=== PATIENT | female | born 1945 | race Caucasian/White ===

== ENCOUNTER → 2016-06-15 | Outpatient (REF) | payer MEDICARE, OTHER ==
[~2016-06-15] MED LIST: BACITAB3 PO; DICY1CAP8 PO; FISHCAP PO; LATA5OPD OU; MESA50SU PR; NAPRPOW4 PO; PRED10PA PO; PRED20TA PO; REST0.05 OU; SULF500T2 PO
[2016-06-17 06:53] LABS: PERCENT SATURATION 40.5 % (13.2-37.4)
== END ==
LOC: M LAB REF 13:07
PROVIDERS: ATTEND Internal Medicine
DX: D50.9 Iron deficiency anemia, unspecified (principal)

== ENCOUNTER → 2016-07-26 | Outpatient (CLI) | payer MEDICARE, OTHER ==
[~2016-07-26] VITALS: Ht 172.7 cm; Wt 66.2 kg
[~2016-07-26] MED LIST changes: +LIAL1.2T PO; +NS 1,000 ML IV ONE; +PROPOFOL 200 MG/20 ML VIAL As Ordered ONE; +TYLE500T78 PO
--- NOTE | 2016-07-26 11:33 | ROOR ---
Patient Name: Elza Donohue Procedure Date: 07/26/2016 10:58 AM Date of : 1945 Age: 71 Room: [facility] Gender: Female Note Status: Finalized Procedure: Colonoscopy Indications: High risk colon cancer surveillance: Ulcerative proctosigmoiditis Providers: Gulshan CARDOSO MD Referring MD: PATTI FRANKLIN JR, MD Requesting Provider: Medicines: Monitored Anesthesia Care Complications: No immediate complications. Procedure: Pre-Anesthesia Assessment: - The heart rate, respiratory rate, oxygen saturations, blood pressure, adequacy of pulmonary ventilation, and response to care were monitored throughout the procedure. The Colonoscope was introduced through the anus and advanced to 4 cm into the ileum. The colonoscopy was performed without difficulty. The patient tolerated the procedure well. The quality of the bowel preparation was good. Findings: The perianal examination was normal. Inflammation characterized by congestion (edema), erythema, loss of vascularity, pseudopolyps and scarring was found in a continuous and circumferential pattern from the rectum to the splenic flexure. This was moderate in severity. Biopsies were taken with a cold forceps for histology. The exam of the rest of the colon and terminal ileum was visually normal. Impression: - Left-sided ulcerative colitis. Inflammation was found from the rectum to the splenic flexure. This was moderate in severity. Biopsied. - The examination of the rest of the colon was otherwise normal. - The perianal exam was normal (skin tags) - The terminal ileum was normal. Recommendation: - Continue present medications. - Return to my office in 1 month. - You are on Lialda and Canasa.--Your symptoms are only at best marginally well controlled. I would recommend advancing your regimen to probably a biologic medication (Humira or Remicade)....to be discussed on follow up. Gulshan Cardoso MD Gulshan CARDOSO MD 07/26/2016 11:33:10 AM This report has been signed electronically. Number of Addenda: 0 Note Initiated On: 07/26/2016 10:58 AM Estimated Blood Loss: Estimated blood loss: none.
[2016-07-26 11:45] VITALS: BP 141/87
== END | disposition home or self-care (01) ==
LOC: M OPP 09:28
PROVIDERS: ATTEND Internal Medicine Gastroenterology
DX: K51.30 Ulcerative (chronic) rectosigmoiditis without complications (principal); K51.50 Left sided colitis without complications; K64.4 Residual hemorrhoidal skin tags; E78.5 Hyperlipidemia, unspecified; K57.92 Diverticulitis of intestine, part unspecified, without perforation or abscess without bleeding; M19.90 Unspecified osteoarthritis, unspecified site; G43.909 Migraine, unspecified, not intractable, without status migrainosus; J84.10 Pulmonary fibrosis, unspecified; Z87.891 Personal history of nicotine dependence; Z86.69 Personal history of other diseases of the nervous system and sense organs; Z79.899 Other long term (current) drug therapy; Z80.41 Family history of malignant neoplasm of ovary; Z80.7 Family history of other malignant neoplasms of lymphoid, hematopoietic and related tissues

== ENCOUNTER → 2016-11-23 | Outpatient (CLI) | payer MEDICARE, OTHER ==
[~2016-11-23] MED LIST changes: +BACITAB PO; -BACITAB3 PO; -NS 1,000 ML IV ONE; -PROPOFOL 200 MG/20 ML VIAL As Ordered ONE
[2016-11-23 11:36] LABS: BASO # 0.1 10^3/uL (0.0-0.2); BASO % 0.8 % (0.0-1.0); EOS # 0.2 10^3/uL (0.0-0.50); EOS % 3.3 % (0.0-3.0); IMMATURE GRANULOCYTE % 0.2 % (0-0); LYMPH # 0.9 10^3/uL (1.5-4.5); LYMPH % 15.3 % (24.0-44.0); MEAN CORPUSCULAR HEMOGLOBIN 30.6 pg (27.0-33.0); MEAN CORPUSCULAR HGB CONC 33.3 g/dl (32.0-36.5); MEAN CORPUSCULAR VOLUME 92.1 fl (80.0-96.0); MONO # 0.5 10^3/uL (0.0-0.8); MONO % 8.2 % (0.0-5.0); NEUTROPHILS # 4.3 10^3/uL (1.8-7.7); NEUTROPHILS % 72.2 % (36.0-66.0); PLATELET COUNT, AUTOMATED 242 10^3/uL (150-450); RED CELL DISTRIBUTION WIDTH 12.8 % (11.5-14.5)
[2016-11-23 12:11] LABS: ALBUMIN 3.7 GM/DL (3.2-5.2); ALBUMIN/GLOBULIN RATIO 1.16 (1.00-1.93); ALKALINE PHOSPHATASE 88 U/L (45-117); ALT/SGPT 23 U/L (12-78); ANION GAP 6 MEQ/L (8-16); AST/SGOT 20 U/L (15-37); BILIRUBIN,TOTAL 0.5 MG/DL (0.2-1.0); BLOOD UREA NITROGEN 18 MG/DL (7-18); CALCIUM LEVEL 8.6 MG/DL (8.8-10.2); CARBON DIOXIDE LEVEL 29 MEQ/L (21-32); CHLORIDE LEVEL 106 MEQ/L (98-107); CREATININE FOR GFR 0.62 MG/DL (0.55-1.02); FREE T4 1.11 NG/DL (0.76-1.46); GLOMERULAR FILTRATION RATE > 60.0 (>45); GLUCOSE, FASTING 84 MG/DL (80-110); POTASSIUM SERUM 4.2 MEQ/L (3.5-5.1); SODIUM LEVEL 141 MEQ/L (136-145); TOTAL PROTEIN 6.9 GM/DL (6.4-8.2)
== END ==
LOC: M LAB 09:56
PROVIDERS: ATTEND Internal Medicine Gastroenterology
DX: K51.319 Ulcerative (chronic) rectosigmoiditis with unspecified complications (principal); K51.211 Ulcerative (chronic) proctitis with rectal bleeding; Z79.899 Other long term (current) drug therapy

== ENCOUNTER → 2017-01-21 | Outpatient (CLI) | payer MEDICARE, OTHER | LOC: M LAB 12:02 | PROVIDERS: ATTEND Internal Medicine Gastroenterology | DX: K51.319 Ulcerative (chronic) rectosigmoiditis with unspecified complications (principal) ==

== ENCOUNTER → 2017-07-04 | Outpatient (CLI) | payer MEDICARE, OTHER ==
[2017-07-04 17:46] LABS: ALBUMIN 3.1 GM/DL (3.2-5.2); ALBUMIN/GLOBULIN RATIO 0.82 (1.00-1.93); ALKALINE PHOSPHATASE 68 U/L (45-117); ALT/SGPT 22 U/L (12-78); ANION GAP 4 MEQ/L (8-16); AST/SGOT 17 U/L (7-37); BILIRUBIN,TOTAL 0.3 MG/DL (0.2-1.0); BLOOD UREA NITROGEN 14 MG/DL (7-18); C REACTIVE PROTEIN QUANTITATIV 1.32 MG/DL (0.00-0.30); CALCIUM LEVEL 8.5 MG/DL (8.8-10.2); CARBON DIOXIDE LEVEL 28 MEQ/L (21-32); CHLORIDE LEVEL 111 MEQ/L (98-107); CREATININE FOR GFR 0.63 MG/DL (0.55-1.30); GLOMERULAR FILTRATION RATE > 60.0 (>39); GLUCOSE, FASTING 90 MG/DL (70-100); POTASSIUM SERUM 4.3 MEQ/L (3.5-5.1); SODIUM LEVEL 143 MEQ/L (136-145); TOTAL PROTEIN 6.9 GM/DL (6.4-8.2)
[2017-07-04 18:06] LABS: BASO # 0.1 10^3/uL (0.0-0.2); BASO % 0.9 % (0.0-1.0); EOS % 0.3 % (0.0-3.0); HEMOGLOBIN 8.8 g/dl (12.0-15.5); IMMATURE GRANULOCYTE % 0.3 % (0-3.0); LYMPH # 1.4 10^3/uL (1.5-4.5); LYMPH % 19.7 % (24.0-44.0); MEAN CORPUSCULAR HEMOGLOBIN 22.4 pg (27.0-33.0); MEAN CORPUSCULAR HGB CONC 29.3 g/dl (32.0-36.5); MEAN CORPUSCULAR VOLUME 76.3 fl (80.0-96.0); MONO # 0.6 10^3/uL (0.0-0.8); MONO % 9.1 % (0.0-5.0); NEUTROPHILS # 4.9 10^3/uL (1.8-7.7); NEUTROPHILS % 69.7 % (36.0-66.0); PLATELET COUNT, AUTOMATED 361 10^3/uL (150-450); RED BLOOD COUNT 3.93 10^6/uL (4.00-5.40); RED CELL DISTRIBUTION WIDTH 16.6 % (11.5-14.5); WHITE BLOOD COUNT 7.1 10^3/uL (4.0-10.0)
== END ==
LOC: M LAB 16:43
DX: K51.211 Ulcerative (chronic) proctitis with rectal bleeding (principal)
CPT/HCPCS: 80053

== ENCOUNTER 2017-07-30 09:14 | Outpatient (CLI) | payer MEDICARE, OTHER ==
[2017-07-30] MEDS: VEDOLIZUMAB 300 MG in NS 250 ML IV (10:17)
== END 2017-07-30 11:45 | disposition home or self-care (01) ==
LOC: M INFU 09:14
DX: K51.90 Ulcerative colitis, unspecified, without complications (principal); E78.00 Pure hypercholesterolemia, unspecified; J98.4 Other disorders of lung; M12.9 Arthropathy, unspecified; Z79.899 Other long term (current) drug therapy; Z90.710 Acquired absence of both cervix and uterus; F17.210 Nicotine dependence, cigarettes, uncomplicated
CPT/HCPCS: J3380

== ENCOUNTER → 2017-08-21 | Outpatient (CLI) | payer MEDICARE, OTHER ==
[2017-08-21 10:40] LABS: BASO # 0.1 10^3/uL (0.0-0.2); BASO % 0.7 % (0.0-1.0); EOS % 0.6 % (0.0-3.0); HEMATOCRIT 40.2 % (36.0-47.0); HEMOGLOBIN 12.8 g/dl (12.0-15.5); IMMATURE GRANULOCYTE % 0.3 % (0-3.0); LYMPH # 1.3 10^3/uL (1.5-4.5); LYMPH % 18.8 % (24.0-44.0); MEAN CORPUSCULAR HEMOGLOBIN 27.5 pg (27.0-33.0); MEAN CORPUSCULAR HGB CONC 31.8 g/dl (32.0-36.5); MEAN CORPUSCULAR VOLUME 86.5 fl (80.0-96.0); MONO # 0.4 10^3/uL (0.0-0.8); NEUTROPHILS # 5.2 10^3/uL (1.8-7.7); NEUTROPHILS % 73.6 % (36.0-66.0); PLATELET COUNT, AUTOMATED 304 10^3/uL (150-450); RED BLOOD COUNT 4.65 10^6/uL (4.00-5.40); RED CELL DISTRIBUTION WIDTH 23.3 % (11.5-14.5); WHITE BLOOD COUNT 7.1 10^3/uL (4.0-10.0)
[2017-08-21 10:55] LABS: IRON (FE) 113 UG/DL (50-170); PERCENT SATURATION 34.7 % (13.2-45.0); TOTAL IRON BINDING CAPACITY 326 UG/DL (250-450)
== END ==
LOC: M LAB 10:00
DX: K51.319 Ulcerative (chronic) rectosigmoiditis with unspecified complications (principal)
CPT/HCPCS: 83550

== ENCOUNTER 2017-09-10 13:14 | Outpatient (CLI) | payer MEDICARE, OTHER ==
[2017-09-10] MEDS: VEDOLIZUMAB 300 MG in NS 250 ML IV (13:58)
== END 2017-09-10 14:45 | disposition home or self-care (01) ==
LOC: M INFU 13:14
DX: K51.90 Ulcerative colitis, unspecified, without complications (principal); Z79.899 Other long term (current) drug therapy
CPT/HCPCS: J3380

== ENCOUNTER → 2017-09-25 | Outpatient (CLI) | payer MEDICARE, OTHER ==
[2017-09-25 12:11] LABS: BASO % 0.6 % (0.0-1.0); EOS % 0.4 % (0.0-3.0); HEMATOCRIT 42.8 % (36.0-47.0); HEMOGLOBIN 13.6 g/dl (12.0-15.5); IMMATURE GRANULOCYTE % 0.6 % (0-3.0); LYMPH % 14.3 % (24.0-44.0); MEAN CORPUSCULAR HEMOGLOBIN 27.8 pg (27.0-33.0); MEAN CORPUSCULAR HGB CONC 31.8 g/dl (32.0-36.5); MEAN CORPUSCULAR VOLUME 87.5 fl (80.0-96.0); MONO # 0.3 10^3/uL (0.0-0.8); MONO % 4.2 % (0.0-5.0); NEUTROPHILS # 5.5 10^3/uL (1.8-7.7); NEUTROPHILS % 79.9 % (36.0-66.0); PLATELET COUNT, AUTOMATED 280 10^3/uL (150-450); RED BLOOD COUNT 4.89 10^6/uL (4.00-5.40); RED CELL DISTRIBUTION WIDTH 16.5 % (11.5-14.5); WHITE BLOOD COUNT 6.9 10^3/uL (4.0-10.0)
[2017-09-25 12:57] LABS: ALBUMIN 3.4 GM/DL (3.2-5.2); ALBUMIN/GLOBULIN RATIO 0.92 (1.00-1.93); ALKALINE PHOSPHATASE 85 U/L (45-117); ALT/SGPT 32 U/L (12-78); ANION GAP 7 MEQ/L (8-16); AST/SGOT 22 U/L (7-37); BILIRUBIN,TOTAL 0.3 MG/DL (0.2-1.0); BLOOD UREA NITROGEN 15 MG/DL (7-18); CALCIUM LEVEL 8.8 MG/DL (8.8-10.2); CARBON DIOXIDE LEVEL 32 MEQ/L (21-32); CHLORIDE LEVEL 104 MEQ/L (98-107); CREATININE FOR GFR 0.72 MG/DL (0.55-1.30); GLOMERULAR FILTRATION RATE > 60.0 (>39); GLUCOSE, FASTING 97 MG/DL (70-100); IRON (FE) 43 UG/DL (50-170); PERCENT SATURATION 11.2 % (13.2-45.0); POTASSIUM SERUM 4.4 MEQ/L (3.5-5.1); SODIUM LEVEL 143 MEQ/L (136-145); TOTAL IRON BINDING CAPACITY 385 UG/DL (250-450); TOTAL PROTEIN 7.1 GM/DL (6.4-8.2)
== END ==
LOC: M LAB 11:37
DX: K51.319 Ulcerative (chronic) rectosigmoiditis with unspecified complications (principal)
CPT/HCPCS: 83550

== ENCOUNTER 2017-11-05 10:09 | Outpatient (CLI) | payer MEDICARE, OTHER ==
[2017-11-05] MEDS: VEDOLIZUMAB 300 MG in NS 250 ML IV (10:44)
== END 2017-11-05 11:25 | disposition home or self-care (01) ==
LOC: M INFU 10:09
DX: K51.90 Ulcerative colitis, unspecified, without complications (principal); Z88.8 Allergy status to other drugs, medicaments and biological substances

== ENCOUNTER 2017-11-07 15:33 | Inpatient (IN) | payer MEDICARE, OTHER ==
[2017-11-07 16:14] LABS: BASO % 0.6 % (0.0-1.0); EOS # 0.1 10^3/uL (0.0-0.50); EOS % 0.9 % (0.0-3.0); HEMOGLOBIN 12.8 g/dl (12.0-15.5); IMMATURE GRANULOCYTE % 0.3 % (0-3.0); LYMPH # 1.4 10^3/uL (1.5-4.5); LYMPH % 20.7 % (24.0-44.0); MEAN CORPUSCULAR HEMOGLOBIN 28.6 pg (27.0-33.0); MEAN CORPUSCULAR VOLUME 89.5 fl (80.0-96.0); MONO # 0.5 10^3/uL (0.0-0.8); MONO % 7.2 % (0.0-5.0); NEUTROPHILS # 4.8 10^3/uL (1.8-7.7); NEUTROPHILS % 70.3 % (36.0-66.0); PLATELET COUNT, AUTOMATED 264 10^3/uL (150-450); RED BLOOD COUNT 4.47 10^6/uL (4.00-5.40); WHITE BLOOD COUNT 6.8 10^3/uL (4.0-10.0)
[2017-11-07 16:25] LABS: INR 0.93; PROTHROMBIN TIME 12.6 SECONDS (12.1-14.4)
[2017-11-07 16:26] LABS: PARTIAL THROMBOPLASTIN TIME 28.6 SECONDS (25.4-37.6)
[2017-11-07 16:57] LABS: ANION GAP 7 MEQ/L (8-16); BLOOD UREA NITROGEN 18 MG/DL (7-18); CARBON DIOXIDE LEVEL 29 MEQ/L (21-32); CHLORIDE LEVEL 107 MEQ/L (98-107); CPK CREATINE PHOSPHOKINASE 347 U/L (26-192); CREATININE FOR GFR 0.84 MG/DL (0.55-1.30); GLOMERULAR FILTRATION RATE > 60.0 (>39); GLUCOSE, FASTING 95 MG/DL (70-100); MAGNESIUM LEVEL 2.3 MG/DL (1.8-2.4); MB/CK RELATIVE INDEX 0.43 (< OR =4); PHOSPHORUS LEVEL 3.8 MG/DL (2.5-4.9); POTASSIUM SERUM 3.9 MEQ/L (3.5-5.1); SODIUM LEVEL 143 MEQ/L (136-145); TROPONIN I < 0.02 NG/ML (< 0.10)
[2017-11-07 17:57] LABS: CHOLESTEROL LEVEL 285 MG/DL (<200); CHOLESTEROL RISK RATIO 3.131 (<5); HDL CHOLESTEROL 91 MG/DL (>40); LDL CHOLESTEROL 169 MG/DL (<100); NON-HDL-C 194 MG/DL; TRIGLYCERIDES LEVEL 124 MG/DL (<150)
[2017-11-07] MEDS ORDERED: ACETAMINOPHEN 500 MG TAB PO (18:45)
[2017-11-07] MEDS: ATORVASTATIN 20 MG TAB PO (21:00)
[2017-11-07] MEDS ORDERED: NON-FORMULARY COMPOUNDED MEDICATION OU (21:00)
[2017-11-07 22:19] LABS: CPK CREATINE PHOSPHOKINASE 323 U/L (26-192); MB/CK RELATIVE INDEX 0.34 (< OR =4); TROPONIN I < 0.02 NG/ML (< 0.10)
[2017-11-08] MEDS: LATANOPROST 0.005% OPHTH SOLN 2.5 ML OU ×2 (03:18→03:19)
[2017-11-08 06:54] LABS: HEMOGLOBIN 12.2 g/dl (12.0-15.5); MEAN CORPUSCULAR HEMOGLOBIN 28.5 pg (27.0-33.0); MEAN CORPUSCULAR HGB CONC 32.1 g/dl (32.0-36.5); MEAN CORPUSCULAR VOLUME 88.8 fl (80.0-96.0); PLATELET COUNT, AUTOMATED 233 10^3/uL (150-450); RED BLOOD COUNT 4.28 10^6/uL (4.00-5.40); RED CELL DISTRIBUTION WIDTH 13.1 % (11.5-14.5); WHITE BLOOD COUNT 6.7 10^3/uL (4.0-10.0)
[2017-11-08 07:13] LABS: ANION GAP 7 MEQ/L (8-16); BLOOD UREA NITROGEN 18 MG/DL (7-18); CALCIUM LEVEL 8.7 MG/DL (8.8-10.2); CARBON DIOXIDE LEVEL 28 MEQ/L (21-32); CHLORIDE LEVEL 110 MEQ/L (98-107); CK-MB VALUE MASS < 1.0 NG/ML (<3.6); CPK CREATINE PHOSPHOKINASE 300 U/L (26-192); CREATININE FOR GFR 0.76 MG/DL (0.55-1.30); GLOMERULAR FILTRATION RATE > 60.0 (>39); GLUCOSE, FASTING 104 MG/DL (70-100); MB/CK RELATIVE INDEX 0.33 (< OR =4); POTASSIUM SERUM 4.1 MEQ/L (3.5-5.1); SODIUM LEVEL 145 MEQ/L (136-145); TROPONIN I < 0.02 NG/ML (< 0.10)
[2017-11-08] MEDS: INFLUENZA VIRUS VACCINE HIGH DOSE 0.5 ML SYRINGE (90662) IM (09:05)
[2017-11-08] MEDS: BUDESONIDE EC 3 MG CAP (ENTOCORT EC) PO (09:05)
[2017-11-08] MEDS: DICYCLOMINE 10 MG CAP PO (09:06)
[2017-11-08] MEDS: ASPIRIN 81 MG ENTERIC TAB PO (09:06)
[2017-11-08] MEDS ORDERED: PROHANCE 279.3MG/ML 15ML VIAL (A9576) As Ordered (17:53)
[2017-11-09] MEDS ORDERED: SLF 3 ML SYR IV (01:00)
[2017-11-09 05:06] LABS: HEMATOCRIT 36.9 % (36.0-47.0); HEMOGLOBIN 11.7 g/dl (12.0-15.5); MEAN CORPUSCULAR HEMOGLOBIN 28.4 pg (27.0-33.0); MEAN CORPUSCULAR HGB CONC 31.7 g/dl (32.0-36.5); MEAN CORPUSCULAR VOLUME 89.6 fl (80.0-96.0); PLATELET COUNT, AUTOMATED 212 10^3/uL (150-450); RED BLOOD COUNT 4.12 10^6/uL (4.00-5.40); WHITE BLOOD COUNT 5.1 10^3/uL (4.0-10.0)
[2017-11-09 05:36] LABS: ANION GAP 7 MEQ/L (8-16); BLOOD UREA NITROGEN 19 MG/DL (7-18); CALCIUM LEVEL 8.6 MG/DL (8.8-10.2); CARBON DIOXIDE LEVEL 27 MEQ/L (21-32); CHLORIDE LEVEL 111 MEQ/L (98-107); CREATININE FOR GFR 0.68 MG/DL (0.55-1.30); GLOMERULAR FILTRATION RATE > 60.0 (>39); GLUCOSE, FASTING 97 MG/DL (70-100); POTASSIUM SERUM 3.7 MEQ/L (3.5-5.1); SODIUM LEVEL 145 MEQ/L (136-145)
[2017-11-09] MEDS: SLF 3 ML SYR IV (05:38)
[2017-11-09] MEDS: BUDESONIDE EC 3 MG CAP (ENTOCORT EC) PO (09:15)
[2017-11-09] MEDS: ASPIRIN 81 MG ENTERIC TAB PO (10:01)
[2017-11-09] MEDS: ATORVASTATIN 20 MG TAB PO (10:01)
[2017-11-11 12:55] LABS: BEDSIDE GLUCOSE 97 MG/DL (83-110)
== END 2017-11-09 10:50 | disposition home or self-care (01) | DRG 69 ==
LOC: M PCU 11-08 02:16 → M ED 15:33 → M ED INP 18:32
DX: G45.9 Transient cerebral ischemic attack, unspecified (principal); K51.90 Ulcerative colitis, unspecified, without complications; M19.90 Unspecified osteoarthritis, unspecified site; J84.10 Pulmonary fibrosis, unspecified; H04.123 Dry eye syndrome of bilateral lacrimal glands; Z79.82 Long term (current) use of aspirin; Z79.899 Other long term (current) drug therapy

== ENCOUNTER 2017-11-22 07:25 | Day surgery (SDC) | payer MEDICARE, OTHER ==
[2017-11-22] MEDS: NS 1,000 ML IV (07:30)
[2017-11-22] MEDS ORDERED: LIDOCAINE 2% INJ 100 MG/5 ML SDV (FOR ANES.) As Ordered (07:46)
[2017-11-22] MEDS ORDERED: PROPOFOL 500 MG/50 ML VIAL As Ordered (07:46)
== END 2017-11-22 08:30 | disposition home or self-care (01) ==
LOC: M OPP 07:25
DX: Z09 Encounter for follow-up examination after completed treatment for conditions other than malignant neoplasm (principal); K51.50 Left sided colitis without complications; K64.8 Other hemorrhoids; E78.5 Hyperlipidemia, unspecified; K92.2 Gastrointestinal hemorrhage, unspecified; D64.9 Anemia, unspecified; M19.90 Unspecified osteoarthritis, unspecified site; Z85.828 Personal history of other malignant neoplasm of skin; G43.909 Migraine, unspecified, not intractable, without status migrainosus; Z86.73 Personal history of transient ischemic attack (TIA), and cerebral infarction without residual deficits; Z87.09 Personal history of other diseases of the respiratory system; R06.83 Snoring; H93.3X9 Disorders of unspecified acoustic nerve; Z92.3 Personal history of irradiation; Z87.891 Personal history of nicotine dependence; Z79.82 Long term (current) use of aspirin; Z79.899 Other long term (current) drug therapy; Z80.41 Family history of malignant neoplasm of ovary; Z80.7 Family history of other malignant neoplasms of lymphoid, hematopoietic and related tissues
CPT/HCPCS: 45330

== ENCOUNTER → 2017-12-11 | Outpatient (REF) | payer MEDICARE, OTHER ==
[2017-12-11 13:37] LABS: INR 0.91; PROTHROMBIN TIME 12.4 SECONDS (12.1-14.4)
[2017-12-11 13:38] LABS: PARTIAL THROMBOPLASTIN TIME 29.2 SECONDS (25.4-37.6)
== END ==
LOC: M LAB REF 12:30
DX: D69.2 Other nonthrombocytopenic purpura (principal)
CPT/HCPCS: 85610

== ENCOUNTER 2017-12-31 11:46 | Outpatient (CLI) | payer MEDICARE, OTHER ==
[2017-12-31] MEDS: VEDOLIZUMAB 300 MG in NS 250 ML IV (12:24)
== END 2017-12-31 13:30 | disposition home or self-care (01) ==
LOC: M INFU 11:46
DX: K51.90 Ulcerative colitis, unspecified, without complications (principal)
CPT/HCPCS: J3380

== ENCOUNTER → 2018-06-11 | Outpatient (CLI) | payer MEDICARE, OTHER ==
[~2018-06-11] MED LIST changes: +ASPI81TAEC PO; +ATOR1TAB21 PO; +DICY20TA11 PO; +ENTY1INJ IV; +IMOD2TAB16 PO; +IRON65TA PO; +LATA0.0013 OU; -LATA5OPD OU; +REST0.057 OU; +UCER9TAB PO
[2018-06-11 12:24] LABS: BASO # 0.1 10^3/uL (0.0-0.2); BASO % 0.9 % (0.0-1.0); EOS # 0.1 10^3/uL (0.0-0.50); EOS % 2.5 % (0.0-3.0); HEMATOCRIT 40.1 % (36.0-47.0); HEMOGLOBIN 13.3 g/dl (12.0-15.5); LYMPH # 1.6 10^3/uL (1.5-4.5); MEAN CORPUSCULAR HEMOGLOBIN 29.4 pg (27.0-33.0); MEAN CORPUSCULAR HGB CONC 33.2 g/dl (32.0-36.5); MEAN CORPUSCULAR VOLUME 88.7 fl (80.0-96.0); MONO # 0.4 10^3/uL (0.0-0.8); MONO % 7.2 % (0.0-5.0); NEUTROPHILS # 3.4 10^3/uL (1.8-7.7); NEUTROPHILS % 61.2 % (36.0-66.0); PLATELET COUNT, AUTOMATED 213 10^3/uL (150-450); RED BLOOD COUNT 4.52 10^6/uL (4.00-5.40); WHITE BLOOD COUNT 5.5 10^3/uL (4.0-10.0)
[2018-06-11 12:56] LABS: ALBUMIN 3.8 GM/DL (3.2-5.2); ALT/SGPT 23 U/L (12-78); BILIRUBIN,TOTAL 0.6 MG/DL (0.2-1.0); BLOOD UREA NITROGEN 16 MG/DL (7-18); CALCIUM LEVEL 8.9 MG/DL (8.8-10.2); CARBON DIOXIDE LEVEL 31 MEQ/L (21-32); CHLORIDE LEVEL 107 MEQ/L (98-107); GLOMERULAR FILTRATION RATE > 60.0 (>39); GLUCOSE, FASTING 88 MG/DL (70-100); IRON (FE) 75 UG/DL (50-170); PERCENT SATURATION 22.3 % (13.2-45.0); POTASSIUM SERUM 4.3 MEQ/L (3.5-5.1); SODIUM LEVEL 141 MEQ/L (136-145); TOTAL IRON BINDING CAPACITY 337 UG/DL (250-450); TOTAL PROTEIN 6.8 GM/DL (6.4-8.2)
== END ==
LOC: M LAB 11:19
PROVIDERS: ATTEND Internal Medicine Gastroenterology
DX: K51.50 Left sided colitis without complications (principal)

== ENCOUNTER → 2018-06-12 | Outpatient (REF) | payer MEDICARE, OTHER | LOC: M LAB REF 16:36 | PROVIDERS: ATTEND Internal Medicine Gastroenterology | DX: K51.50 Left sided colitis without complications (principal) ==

== ENCOUNTER → 2018-06-13 | Outpatient (REF) | payer MEDICARE, OTHER ==
[2018-06-13 11:44] LABS: BASO # 0.1 10^3/uL (0.0-0.2); EOS # 0.2 10^3/uL (0.0-0.50); EOS % 3.3 % (0.0-3.0); HEMATOCRIT 41.4 % (36.0-47.0); HEMOGLOBIN 13.5 g/dl (12.0-15.5); LYMPH # 1.4 10^3/uL (1.5-4.5); MEAN CORPUSCULAR HEMOGLOBIN 29.5 pg (27.0-33.0); MEAN CORPUSCULAR HGB CONC 32.6 g/dl (32.0-36.5); MEAN CORPUSCULAR VOLUME 90.4 fl (80.0-96.0); MONO # 0.3 10^3/uL (0.0-0.8); NEUTROPHILS # 2.9 10^3/uL (1.8-7.7); NEUTROPHILS % 59.3 % (36.0-66.0); PLATELET COUNT, AUTOMATED 188 10^3/uL (150-450); RED BLOOD COUNT 4.58 10^6/uL (4.00-5.40); WHITE BLOOD COUNT 4.9 10^3/uL (4.0-10.0)
[2018-06-13 11:58] LABS: BLOOD UREA NITROGEN 19 MG/DL (7-18); CALCIUM LEVEL 8.7 MG/DL (8.8-10.2); CARBON DIOXIDE LEVEL 31 MEQ/L (21-32); CHLORIDE LEVEL 110 MEQ/L (98-107); CHOLESTEROL LEVEL 169 MG/DL (<200); CHOLESTEROL RISK RATIO 2.086 (<5); GLOMERULAR FILTRATION RATE > 60.0 (>39); GLUCOSE, FASTING 94 MG/DL (70-100); HDL CHOLESTEROL 81 MG/DL (>40); LDL CHOLESTEROL 71 MG/DL (<100); NON-HDL-C 88 MG/DL; POTASSIUM SERUM 4.2 MEQ/L (3.5-5.1); SODIUM LEVEL 143 MEQ/L (136-145); TRIGLYCERIDES LEVEL 86 MG/DL (<150)
== END ==
LOC: M LABDRAWC 11:00
PROVIDERS: ATTEND Internal Medicine
DX: Z00.00 Encounter for general adult medical examination without abnormal findings (principal); E78.00 Pure hypercholesterolemia, unspecified; E87.5 Hyperkalemia; K50.10 Crohn's disease of large intestine without complications

== ENCOUNTER 2018-06-17 14:50 | Outpatient (CLI) | payer MEDICARE, OTHER ==
[~2018-06-17] VITALS: Ht 172.7 cm; Wt 66.6 kg
[2018-06-17 14:55] VITALS: BP 140/69
[2018-06-17] MEDS ORDERED: VEDOLIZUMAB 300 MG in NS 250 ML IV ONE (15:15)
[2018-06-17 16:15] VITALS: BP 126/70
== END 2018-06-17 16:30 | disposition home or self-care (01) ==
LOC: M INFU 14:50
PROVIDERS: ATTEND Internal Medicine Gastroenterology
DX: K51.90 Ulcerative colitis, unspecified, without complications (principal); Z79.82 Long term (current) use of aspirin; Z79.899 Other long term (current) drug therapy
CPT/HCPCS: 96365; J3380

== ENCOUNTER → 2018-08-12 | Outpatient (CLI) | payer MEDICARE, OTHER ==
[~2018-08-12] VITALS: Ht 172.7 cm; Wt 66.6 kg
[~2018-08-12] MED LIST changes: +PRAV20TA2 PO; +VEDOLIZUMAB 300 MG in NS 250 ML IV ONE
[2018-08-12 10:35] VITALS: BP 130/64
[2018-08-12 11:44] VITALS: BP 135/69
== END ==
LOC: M INFU 10:30
PROVIDERS: ATTEND Internal Medicine Gastroenterology
DX: K51.90 Ulcerative colitis, unspecified, without complications (principal); Z79.82 Long term (current) use of aspirin; Z79.899 Other long term (current) drug therapy
CPT/HCPCS: 96365; J3380

== ENCOUNTER → 2018-09-19 | Outpatient (CLI) | payer MEDICARE, OTHER ==
[~2018-09-19] MED LIST changes: +ACET-683 PO; +ACET-839 PO; +ASPI81TA85 PO; +LOPE2TAB14 PO; +NAPR250T4 PO; +PERC5TAB12 PO; +TRAM50TA2 PO; -VEDOLIZUMAB 300 MG in NS 250 ML IV ONE; +XALA0.007 OP; +XARE10TA PO
[2018-09-19 10:45] LABS: HEMATOCRIT 40.2 % (36.0-47.0); HEMOGLOBIN 13.3 g/dl (12.0-15.5); MEAN CORPUSCULAR HEMOGLOBIN 30.1 pg (27.0-33.0); MEAN CORPUSCULAR HGB CONC 33.1 g/dl (32.0-36.5); PLATELET COUNT, AUTOMATED 201 10^3/uL (150-450); RED BLOOD COUNT 4.42 10^6/uL (4.00-5.40); WHITE BLOOD COUNT 5.2 10^3/uL (4.0-10.0)
[2018-09-19 10:56] LABS: INR 0.99; PROTHROMBIN TIME 12.8 SECONDS (11.8-14.0)
[2018-09-19 11:16] LABS: ERYTHROCYTE SEDIMENTATION RATE 17 mm/hr (0-30)
[2018-09-19 11:20] LABS: ALBUMIN 3.8 GM/DL (3.2-5.2); ALT/SGPT 17 U/L (12-78); BILIRUBIN,TOTAL 0.4 MG/DL (0.2-1.0); BLOOD UREA NITROGEN 19 MG/DL (7-18); CALCIUM LEVEL 8.8 MG/DL (8.8-10.2); CARBON DIOXIDE LEVEL 30 MEQ/L (21-32); CHLORIDE LEVEL 107 MEQ/L (98-107); CREATININE FOR GFR 0.69 MG/DL (0.55-1.30); GLOMERULAR FILTRATION RATE > 60.0 (>39); GLUCOSE, FASTING 88 MG/DL (70-100); POTASSIUM SERUM 3.9 MEQ/L (3.5-5.1); SODIUM LEVEL 141 MEQ/L (136-145); TOTAL PROTEIN 6.6 GM/DL (6.4-8.2)
--- NOTE | 2018-09-19 13:39 | REP ---
CHEST, TWO VIEWS: HISTORY: Preoperative. COMPARISON: ___11/07/2017____. Linear densities are present in the lungs consistent with scarring. The heart is normal in size. The pulmonary vasculature is normal in appearance. The bony structure is intact. IMPRESSION: No acute disease. Electronically Signed by Kyrie Casiano MD 09/19/2018 01:43 P
--- NOTE | 2018-09-20 10:18 | ECGEPIP ---
[facility] Test Date: 2018-09-19 Pat Name: ADRIAAN OGLESBY Department: Room: - Gender: Female [employer] Manager: [facility] : 1945 Requested By: Landen Luz Order Number: [id number] Reading MD: Franck Fortune Measurements Intervals [place] Rate: 57 P: 61 MA: 168 QRS: 20 QRSD: 78 T: 42 QT: 416 QTc: 407 Interpretive Statements Sinus bradycardia Delayed anterior R wave progression Nonspecific ST-T wave abnormalities Except for precordial lead placement, no significant change when compared to prior tracing of 11/07/2017 Electronically Signed on 09-20-2018 10:18:04 EDT by Franck Fortune
== END ==
LOC: M LAB 10:06
PROVIDERS: ATTEND Orthopaedic Surgery
DX: M25.551 Pain in right hip (principal); Z79.01 Long term (current) use of anticoagulants

== ENCOUNTER → 2018-09-29 | Outpatient (REF) | payer MEDICARE, OTHER ==
[~2018-09-29] MED LIST changes: -ACET-683 PO; -ACET-839 PO; -ASPI81TA85 PO; -LOPE2TAB14 PO; -NAPR250T4 PO; -PERC5TAB12 PO; -TRAM50TA2 PO; -XALA0.007 OP; -XARE10TA PO
[2018-09-29 11:42] LABS: ALBUMIN 3.4 GM/DL (3.2-5.2); ALT/SGPT 17 U/L (12-78); BILIRUBIN,TOTAL 0.3 MG/DL (0.2-1.0); BLOOD UREA NITROGEN 21 MG/DL (7-18); CALCIUM LEVEL 8.7 MG/DL (8.8-10.2); CARBON DIOXIDE LEVEL 31 MEQ/L (21-32); CHLORIDE LEVEL 110 MEQ/L (98-107); CHOLESTEROL LEVEL 206 MG/DL (<200); CREATININE FOR GFR 0.71 MG/DL (0.55-1.30); GLOMERULAR FILTRATION RATE > 60.0 (>39); GLUCOSE, FASTING 87 MG/DL (70-100); HDL CHOLESTEROL 76 MG/DL (>40); LDL CHOLESTEROL 114 MG/DL (<100); NON-HDL-C 130 MG/DL; POTASSIUM SERUM 4.2 MEQ/L (3.5-5.1); SODIUM LEVEL 146 MEQ/L (136-145); TRIGLYCERIDES LEVEL 82 MG/DL (<150)
== END ==
LOC: M LABDRAWC 11:14
PROVIDERS: ATTEND Internal Medicine
DX: E78.00 Pure hypercholesterolemia, unspecified (principal)

== ENCOUNTER 2018-10-14 06:00 | Inpatient (IN) | payer MEDICARE, OTHER ==
--- NOTE | 2018-10-06 12:05 | HPE ---
DATE OF ADMISSION: 10/14/2018 ATTENDING PHYSICIAN: Dr. Muller CHIEF COMPLAINT: Right hip pain and stiffness. HISTORY: The patient is a 73-year-old female with progressively worsening right hip pain and stiffness. She has failed to improve with conservative measures. She continues to have symptoms with weightbearing activities and activities of daily living. The patient has consented for an elective right total hip arthroplasty with Dr. Muller for her continued symptoms. Medical optimization pending with Dr. Oconnell. CURRENT MEDICATIONS: - Restasis 0.05% eye drops twice daily - latanoprost eye drops 0.005% every evening - Entyvio 300 mg - dicyclomine 20 mg as needed - naproxen 500 mg as needed - aspirin 81 mg daily ALLERGIES TO MEDICATIONS: 1. PRAVASTATIN. CHRONIC MEDICAL CONDITIONS: Lichen planus. Hyperlipidemia. 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 History of transient ischemic attack (TIA). Ulcerative colitis. PAST SURGICAL HISTORY: Total hysterectomy. Biopsy and removal of basal cell and squamous cell carcinoma of the right cheek. Cataract removal. SOCIAL HISTORY: The patient is a former smoker and rarely uses alcohol. FAMILY HISTORY: Noncontributory. REVIEW OF SYSTEMS: The patient denies fevers, chills, nausea, vomiting or diarrhea. She denies chest pain, shortness of breath, lightheadedness, dizziness or headaches. She denies any recent upper respiratory or urinary tract infection symptoms. The patient continues to have right hip pain with weightbearing activities and activities of daily living. PHYSICAL EXAMINATION: General: Well-nourished, well-developed female in no apparent distress. She is alert, oriented and cooperative. Her mood and affect are appropriate. Vital signs: Height 67.25 inches, weight 144.8 pounds, temperature 96.3, blood pressure 122/80, heart rate 62, respirations 10. Neck: Supple without lymphadenopathy. Heart: Regular rate and rhythm. Lungs: Clear to auscultation bilaterally. Abdomen: Soft, nontender to palpation. No masses palpated. Musculoskeletal: Right hip reveals no gross abnormalities. Her skin is intact. There is tenderness to palpation at the lateral hip and groin. She does have decreased flexion, internal and external rotation at the hip. Right lower extremity strength is 5/5. There was hip irritability elicited with range of motion testing of the hip. Calf is soft, nontender to palpation with no palpable cords noted. She is neurovascularly intact distally. LABORATORY DATA: Chest x-ray no acute disease. Right hip x-ray notable for end-stage degenerative changes. EKG sinus bradycardia with delayed anterior R-wave progression. Nonspecific ST-T wave abnormalities. Comprehensive metabolic profile fasting glucose 88, BUN elevated at 19, creatinine 0.69, GFR greater than 60, sodium 141, potassium 3.9, chloride 107, carbon dioxide 30, anion gap decreased at 4, calcium 8.8, AST 15, ALT 17, alkaline phosphatase 83, total bilirubin 0.4, total protein 6.6, albumin 3.8, albumin-globulin ratio 1.36. Prothrombin time 12.8, INR 0.99. Complete blood count ESR 17, WBC 5.2, RBC 4.42, hemoglobin 13.3, hematocrit 40.2, platelets 201. IMPRESSION: Right hip osteoarthritis with x-rays notable for end-stage degenerative changes. PLAN: The patient has consented for an elective right total hip arthroplasty with Dr. Muller for her continued symptoms. Medical optimization pending with Dr. Oconnell.
[~2018-10-14] VITALS: Ht 170.2 cm; Wt 68.0 kg
[2018-10-14] VITALS (7 sets, daily range): BP systolic 121–130; BP diastolic 65–78
[~2018-10-14 06:00] MED LIST changes: +ACETAMINOPHEN 500 MG TAB PO ONE; +ASPI81TA85 PO; +LR 1,000 ML IV ONE; +NAPR250T4 PO
[2018-10-14] MEDS ORDERED: XALA0.007 OP (06:32)
[2018-10-14] MEDS ORDERED: ACET-839 PO (06:32)
[2018-10-14] MEDS ORDERED: LOPE2TAB14 PO (06:32)
[2018-10-14] MEDS ORDERED: LIDOCAINE 1% MDV 20ML VIAL As Ordered ONE (06:41)
[2018-10-14] MEDS ORDERED: fentaNYL 100 MCG/2 ML INJECTION (J3010) As Ordered ONE ×3 (06:44→09:48)
[2018-10-14] MEDS ORDERED: MIDAZOLAM INJ 2 MG/2 ML VIAL (J2250) As Ordered ONE (06:44)
[2018-10-14] MEDS ORDERED: PROPOFOL 500 MG/50 ML VIAL As Ordered ONE (06:45)
[2018-10-14] MEDS ORDERED: ONDANSETRON 4MG/2ML VIAL (J2405) As Ordered ONE ×2 (06:47→09:48)
[2018-10-14] MEDS ORDERED: LIDOCAINE 2% INJ 100 MG/5 ML SDV (FOR ANES.) As Ordered ONE (06:49)
[2018-10-14] MEDS ORDERED: ceFAZolin 1GM INJ (J0690 PER 500MG) As Ordered ONE (07:07)
[2018-10-14] MEDS ORDERED: ROCURONIUM BROMIDE 50 MG/5 ML VIAL As Ordered ONE ×2 (07:15→08:27)
[2018-10-14] MEDS ORDERED: dexameTHASONE 4 MG/ML 1ML VIAL (J1100) As Ordered ONE (07:15)
[2018-10-14] MEDS ORDERED: ACETAMINOPHEN 1000MG 100ML IV BTL (OFIRMEV) (J0131 PER 10MG) As Ordered ONE (07:56)
[2018-10-14] MEDS ORDERED: PHENYLephrine HCL 500 MCG/5 ML (100MCG/ML) SYRINGE (J2370) As Ordered ONE (08:30)
[2018-10-14] MEDS ORDERED: SUGAMMADEX SODIUM 500 MG/5 ML VIAL (BRIDION) As Ordered ONE (08:39)
[2018-10-14] MEDS ORDERED: oxyCODONE 5MG TAB As Ordered ONE ×2 (09:48→11:16)
[2018-10-14] MEDS ORDERED: ONDANSETRON 4MG/2ML VIAL (J2405) IV PRN (10:00)
[2018-10-14] MEDS ORDERED: FLEET ENEMA PR PRN (10:00)
[2018-10-14] MEDS ORDERED: HYDROMORPHONE HCL 0.5 MG/ 0.5 ML SYRINGE (J1170 PER 1) IV PRN ×2 (10:00)
[2018-10-14] MEDS ORDERED: ACETAMINOPHEN TAB 650MG DOSE (2X325MG) PO PRN (10:00)
[2018-10-14] MEDS ORDERED: LR 1,000 ML IV SCH ×2 (10:00)
[2018-10-14] MEDS: fentaNYL 100 MCG/2 ML INJECTION (J3010) IV PRN ×4 (10:05→10:20)
--- NOTE | 2018-10-14 10:11 | REP ---
Clinical: Status post arthroplasty. Technique: AP and cross-table lateral views. Findings: The patient is status post right hip replacement with normal positioning and appearance to the femoral and acetabular components. Overlying postsurgical changes appreciated. Impression: Satisfactory right hip replacement radiographs. Electronically Signed by Matthias Linares MD 10/14/2018 10:02 A
[2018-10-14] MEDS ORDERED: METOCLOPRAMIDE INJ 10MG/2ML VIAL (J2765) As Ordered ONE (10:49)
[2018-10-14] MEDS: oxyCODONE 5MG TAB PO PRN ×2 (10:50→11:20)
[2018-10-14] MEDS ORDERED: ePHEDrine INJ 50 MG/ML VIAL IV ONE (11:15)
[2018-10-14] MEDS ORDERED: METOCLOPRAMIDE INJ 10MG/2ML VIAL (J2765) IV PRN (11:15)
[2018-10-14] MEDS ORDERED: LR 500 ML IV ONE (11:15)
[2018-10-14] MEDS ORDERED: ePHEDrine SULFATE 25 MG/5 ML(5MG/ML) SYRINGE ONE (11:51)
[2018-10-14] MEDS ORDERED: PERCOCET 5MG/325MG TAB PO PRN (13:45)
--- NOTE | 2018-10-14 14:22 | CR ---
DATE OF CONSULTATION: 10/14/2018 REFERRING PHYSICIAN: Dr. Sukh Muller. REASON FOR CONSULTATION: Management of chronic medical illness. CHIEF COMPLAINT: Right total hip replacement. HISTORY OF PRESENT ILLNESS: This is a 73-year-old female with a history of acoustic neuroma status post gamma knife with chronic balance issues, electively underwent right hip replacement due to progressive limitations in her activities of daily living (ADLs). Patient lives in a two-story home with three steps into the home and 14 steps to the second floor. Patient does have grab bars in the bathroom. Has a that can provide 24/7 supervision at home. She underwent right hip replacement and complains of slight discomfort at the bedside today. She has a known history of 40-pack years of smoking but follows with Dr. Florentino with no changes in her lung granulomas and has been doing well with no complaints of shortness of breath or dyspnea on exertion as an outpatient. She also has history of transient ischemic attack (TIA). Also has history of colitis, dyslipidemia, all of which have been asymptomatic. Patient, otherwise denies any changes in appetite, weight gain or weight loss, sore throat, ear pain. She admits to having balance issues since the acoustic neuroma. Denies, nausea, vomiting, diarrhea, abdominal pain, shortness of breath, chest pain, pressure or tightness, lightheadedness or dizziness. She denies any dysuria, urgency, frequency, fever, chills, flank pain. No diarrhea, constipation, hematemesis, bright red blood per rectum. Complains of hip pain due to severe osteoarthritis. All other systems are otherwise negative. PAST MEDICAL HISTORY: Lichen planus. Basal cell and squamous cell carcinoma of the right cheek. Acoustic neuroma status post gamma knife 2013. Granulomas of the lung. Dyslipidemia. History of transient ischemic attack (TIA). Ulcerative colitis. PAST SURGICAL HISTORY: Gamma knife for acoustic neuroma 2014. Total hysterectomy. Myoserum of basal cell and squamous right cheek. Cataract removal. HOME MEDICATIONS: - Restasis - latanoprost - Entyvio - dicyclomine - naproxen ALLERGIES: PRAVASTATIN SOCIAL HISTORY: Lives with her at home. Three steps in the garage. 14 steps in the home to the second floor. Quit smoking at the age of 42 years. Smoked one back a day since the age of 17. Retired RN. Has a daughter and teenage grandchildren that can help. FAMILY HISTORY: Father at age 74 with coronary artery disease. Mother at age 96 with abdominal aortic aneurysm (AAA), osteoarthritis and dementia. REVIEW OF SYSTEMS: Per history of present illness (HPI). 12-point system otherwise negative. PHYSICAL EXAMINATION: Temperature 97.1, pulse 64, respiratory rate 16, blood pressure 127/66, 97% 2 liters nasal cannula. Generally awake, alert, oriented times three answering questions appropriately. No respiratory distress. No use of respiratory accessory muscles. No conversational dyspnea. Speaks in full sentences. No jugular venous distention (JVD), or thyromegaly. Lungs are clear to auscultation. No wheezing, rales or rhonchi. Heart regular rate and rhythm. S1, S2. Abdomen is soft, nontender and nondistended. Positive bowel sounds. No rebound or guarding. Postop right hip. No pitting edema, bilateral lower extremities. No cyanosis. LABORATORY DATA: None available. ASSESSMENT/PLAN: This is a 73-year-old female with history of acoustic neuroma, chronic dry eyes, dyslipidemia, lung granulomas. 40-pack year history of smoking. Basal and squamous cell CA of the right cheek, transient ischemic attack (TIA), ulcerative colitis, status post right hip replacement. CURRENT ISSUES: 1. Right hip OA s/p replacement. Deep venous thrombosis (DVT) prophylaxis, pain control and bowel regimen per orthopaedic surgery. Physical therapy (PT) and (OT) occupational therapy have consulted. Activity as tolerated. 2. Chronic dry eyes: On Restasis, latanoprost. 3. History of TIA: Currently Xarelto. 4. History of ulcerative colitis: No acute symptoms. 5. History of dyslipidemia: Check fasting lipid profile. 6. History of basal and squamous cell carcinoma right cheek. Outpatient followup. 7. History of lung granulomas: Stable. MTDD
[2018-10-14] MEDS: ONDANSETRON 4 MG TAB (S0181) PO PRN ×2 (15:03→20:54)
[2018-10-14] MEDS: PERCOCET 5MG/325MG TAB PO PRN ×2 (17:04→21:21)
--- NOTE | 2018-10-14 18:25 | RO ---
DATE OF PROCEDURE: 10/14/2018 PREPROCEDURE DIAGNOSIS: Right hip degenerative arthritis. POSTPROCEDURE DIAGNOSIS: Right hip degenerative arthritis. OPERATIVE PROCEDURE: Right total hip arthroplasty using a size 54 Gription cup with a 36 neutral liner and a size 4 [place] standard offset stem with a +5 neck and a 36 mm cobalt-chrome head. SURGEON: Landen Muller MD CONTENT CREATION MANAGER: Mr. Renny Carpio ANESTHESIA: General endotracheal tube anesthetic. COMPLICATIONS: None. SPECIMENS: Femoral head. ESTIMATED BLOOD LOSS: 150 mL DESCRIPTION OF PROCEDURE: Antibiotics were given intravenously preoperatively and successful general endotracheal tube anesthetic was then established, then she was placed in a lateral decubitus position. Using the [place] hip positioner, the down leg well padded especially the peroneal nerve and an axillary roll was utilized. Her right hip area was then carefully prepped and draped in the usual sterile fashion. After appropriate time out a longitudinal incision was made for a direct lateral approach to the hip. Bovie cautery was used to coagulate the crossing vessels. Tensor fascia and then the gluteus medius split in the anterior one-third posterior two-third junction. Then we split the underlying gluteus minimus and into the hip capsule and carefully dissected off the anterior part of the femur as we eventually dislocated the hip anteriorly. Starter reamer was placed in the piriformis fossa followed by the canal finding reamer, then the lateralizing reamer and then we reamed up to a size 4. Femoral neck osteotomy was performed using a template. We then broached to a size 4 without difficulty. We then exposed the acetabulum and performed a labral incision 360 degrees, then removed deep pulvinar tissues from the depths of the acetabulum and then began reaming beginning at 46 mm, advancing in 1 mm increments to 53. The 54 trial cup fit nicely. We then decided to go with a 54 cup, it was opened. We copiously irrigated out the acetabulum and placed the cup using the guide to help set our abduction and our version. She had a fairly sizeable anterior osteophyte, which was then carefully removed with a curved osteotome. Next the polyethylene was placed after placing the central hole eliminator. We made sure that the acetabular polyethylene was well seated. We then did a trial reduction with a 1.5 neck with a 36 head. She had very good stability with flexion internal rotation and extension external rotation, however, there was some impingement on a posterior osteophyte. I trialed with a +5. She had a little bit better soft tissue tension, but still there was a bit of camming from an anterior osteophyte, so I removed the broach and then exposed the posterior aspect of the acetabulum and removed the rim osteophyte posteriorly and this did eliminate the camming affect that was noted on the neck against that osteophyte posteriorly and thus did improve her extension external rotation stability. Telescoping of the soft tissues was minimal, thus I felt this was the appropriate size length used. She did have some shortening of that right leg clinically as noted in the preoperative holding area when I examined her right before surgery. We then removed the trial broach, copiously pulsatile lavage irrigated out the hip joint and the canal and then placed the real #4 stem, then once again trialed with a 1.5 head just to be sure that the +5 was necessary and indeed there was a bit of excess soft tissue telescoping with the 1.5, thus I elected to go with a +5. I then dried the trunion of the femoral stem, placed the real 36 x +5 head/neck onto the trunion, made sure it was securely fit and then copiously irrigated the hip joint and reduced the hip. We then carefully closed the anterior hip capsule with interrupted #1 PDS sutures then closed the gluteus minimus with a separate layer of interrupted #1 PDS sutures, then closed the gluteus medius layer with interrupted #1 PDS sutures, irrigating between layers and closed the tensor fascia with a combination of #1 PDS sutures and a running #1 Stratafix. Subdermal tissues were copiously irrigated and then closed with interrupted #2-0 PDS sutures, followed by trevor in the skin and an Optifoam dressing. She was then turned supine and awakened from general endotracheal tube anesthetic after having tolerated the procedure well and then transferred to the recovery room in stable condition. There were no intraoperative complications. Mr. Renny Carpio was critical to the success of this difficult procedure. He helped to dislocate and relocate the hip several times throughout the operating, and also provided appropriate soft tissue retraction so I could perform the operating smoothly, efficiently and safely, helped close the wound, help prepare the patient amongst many other tasks.
[2018-10-14] MEDS: LATANOPROST 0.005% OPHTH SOLN 2.5 ML OU SCH (20:34)
[2018-10-15] VITALS (7 sets, daily range): BP systolic 84–121; BP diastolic 46–68
[2018-10-15] MEDS: PERCOCET 5MG/325MG TAB PO PRN (04:28)
[2018-10-15] MEDS ORDERED: PERC5TAB12 PO (05:57)
[2018-10-15] MEDS ORDERED: XARE10TA PO (05:57)
[2018-10-15 06:53] LABS: HEMATOCRIT 30.5 % (36.0-47.0); MEAN CORPUSCULAR HEMOGLOBIN 29.6 pg (27.0-33.0); MEAN CORPUSCULAR HGB CONC 32.8 g/dl (32.0-36.5); MEAN CORPUSCULAR VOLUME 90.2 fl (80.0-96.0); PLATELET COUNT, AUTOMATED 168 10^3/uL (150-450); RED BLOOD COUNT 3.38 10^6/uL (4.00-5.40); WHITE BLOOD COUNT 6.8 10^3/uL (4.0-10.0)
[2018-10-15 07:17] LABS: BLOOD UREA NITROGEN 17 MG/DL (7-18); CALCIUM LEVEL 8.2 MG/DL (8.8-10.2); CARBON DIOXIDE LEVEL 30 MEQ/L (21-32); CHLORIDE LEVEL 104 MEQ/L (98-107); CREATININE FOR GFR 0.78 MG/DL (0.55-1.30); GLOMERULAR FILTRATION RATE > 60.0 (>39); GLUCOSE, FASTING 130 MG/DL (70-100); POTASSIUM SERUM 3.7 MEQ/L (3.5-5.1); SODIUM LEVEL 140 MEQ/L (136-145)
[2018-10-15 07:29] LABS: CHOLESTEROL RISK RATIO 2.855 (<5); THYROID STIMULATING HORMONE 0.883 uIU/ML (0.358-3.740)
[2018-10-15] MEDS ORDERED: traMADol 50 MG TAB PO PRN ×2 (08:15)
[2018-10-15] MEDS ORDERED: TRAM50TA2 PO (08:27)
[2018-10-15] MEDS ORDERED: ACET-683 PO (08:27)
[2018-10-15] MEDS ORDERED: DICYCLOMINE 10 MG CAP PO PRN (09:00)
[2018-10-15] MEDS ORDERED: METOCLOPRAMIDE 10 MG TAB PO PRN (09:00)
[2018-10-15] MEDS ORDERED: LOPERAMIDE 2 MG CAP PO PRN (09:00)
--- NOTE | 2018-10-15 09:01 | IPNPDOC ---
Date Seen The patient was seen on 10/15/18. Progress Note SUBJECTIVE: c/o migraine with aura with "squiggly " visual changes has not had any h/a for a year. c/o nausea from percocet, but better with zofran. has photophobia. no fever chills or neck rigidity OBJECTIVE: PHYSICAL EXAMINATION: VITALS: PLS SEE BELOW Generally awake, alert, oriented times three answering questions appropriately. No respiratory distress. No use of respiratory accessory muscles. No conversational dyspnea. Speaks in full sentences. No jugular venous distention (JVD), or thyromegaly. Lungs are clear to auscultation. No wheezing, rales or rhonchi. Heart regular rate and rhythm. S1, S2. Abdomen is soft, nontender and nondistended. Positive bowel sounds. No rebound or guarding. Postop right hip. No pitting edema, bilateral lower extremities. No cyanosis. LABORATORY DATA: REVIEWED,PLS SEE BELOW ASSESSMENT/PLAN: This is a 73-year-old female with history of acoustic neuroma, chronic dry eyes, dyslipidemia, lung granulomas. 40-pack year history of smoking. Basal and squamous cell CA of the right cheek, transient ischemic attack (TIA), ulcerative colitis, status post right hip replacement. CURRENT ISSUES: Right hip fracture s/p replacement. Deep venous thrombosis (DVT) prophylaxis, pain control and bowel regimen per orthopaedic surgery. Physical therapy (PT) and (OT) occupational therapy have consulted. Activity as tolerated. Migraine PRN reglan and toradol PPI for GI protection Chronic dry eyes: On Restasis, latanoprost. History of TIA: Currently Xarelto. History of ulcerative colitis: No acute symptoms. History of dyslipidemia: Check fasting lipid profile. History of basal and squamous cell carcinoma right cheek. Outpatient followup. History of lung granulomas: Stable. VS, I&O, 24H, Fishbone Vital Signs/I&O Vital Signs Date Time Temp Pulse Resp B/P (MAP) Pulse Ox O2 Delivery O2 Flow Rate FiO2 10/15/18 06:15 16 10/15/18 06:00 99.0 72 100/68 (79) 92 10/14/18 11:40 2.0 I&O- Last 24 Hours up to 6 AM 10/15/18 06:00 Intake Total 1910 ml Output Total 1550 ml Balance 360 ml Laboratory Data 24H LABS Laboratory Tests 2 10/15/18 06:19: Nucleated Red Blood Cells % (auto) 0.0, Anion Gap 6L, Glomerular Filtration Rate > 60.0, Blood Urea Nitrogen 17, Creatinine 0.78, Sodium Level 140, Potassium Level 3.7, Chloride Level 104, Carbon Dioxide Level 30, Calcium Level 8.2L, Triglycerides Level 102, LDL Cholesterol 108H, Total Cholesterol 197, Non-HDL Cholesterol (LDL + VLDL) 128, Total HDL Cholesterol 69, Cholesterol/HDL Ratio 2.855, Thyroid Stimulating Hormone (TSH) 0.883 CBC/BMP Laboratory Tests 10/15/18 06:19 Red Blood Count 3.38 L, Mean Corpuscular Volume 90.2, Mean Corpuscular Hemoglobin 29.6, Mean Corpuscular Hemoglobin Concent 32.8, Red Cell Distribution Width 12.6, Calcium Level 8.2 L JORGE BALLESTEROS MD Oct 15, 2018 08:50
[2018-10-15] MEDS ORDERED: KETOROLAC TROMETHAMINE 10 MG TAB PO PRN (09:15)
[2018-10-15] MEDS: OMEPRAZOLE 20 MG CAP PO SCH (10:18)
[2018-10-15] MEDS: MIRALAX *UNIT DOSE* 17GM PACKET PO SCH (10:18)
[2018-10-15] MEDS: MOM 30ML SUSPENSION UDC PO SCH (10:18)
[2018-10-15] MEDS: SENOKOT S TAB PO SCH ×2 (10:19→20:37)
[2018-10-15] MEDS: ACETAMINOPHEN 500 MG TAB PO SCH ×3 (10:19→21:53)
[2018-10-15] MEDS ORDERED: RIVAROXABAN 10 MG TAB (XARELTO) PO SCH (18:00)
[2018-10-15] MEDS: LATANOPROST 0.005% OPHTH SOLN 2.5 ML OU SCH (20:38)
[2018-10-15] MEDS: RESTASIS (PATIENT'S OWN MED) OU SCH (20:39)
[2018-10-16 05:06] VITALS: BP 122/63
[2018-10-16] MEDS: ACETAMINOPHEN 500 MG TAB PO SCH ×2 (05:08→13:11)
[2018-10-16 06:56] LABS: HEMATOCRIT 29.6 % (36.0-47.0); HEMOGLOBIN 9.6 g/dl (12.0-15.5); MEAN CORPUSCULAR HEMOGLOBIN 29.3 pg (27.0-33.0); MEAN CORPUSCULAR HGB CONC 32.4 g/dl (32.0-36.5); MEAN CORPUSCULAR VOLUME 90.2 fl (80.0-96.0); PLATELET COUNT, AUTOMATED 155 10^3/uL (150-450); RED BLOOD COUNT 3.28 10^6/uL (4.00-5.40); WHITE BLOOD COUNT 6.7 10^3/uL (4.0-10.0)
[2018-10-16 07:18] LABS: BLOOD UREA NITROGEN 11 MG/DL (7-18); CALCIUM LEVEL 7.9 MG/DL (8.8-10.2); CARBON DIOXIDE LEVEL 30 MEQ/L (21-32); CHLORIDE LEVEL 109 MEQ/L (98-107); GLOMERULAR FILTRATION RATE > 60.0 (>39); GLUCOSE, FASTING 114 MG/DL (70-100); POTASSIUM SERUM 3.4 MEQ/L (3.5-5.1); SODIUM LEVEL 143 MEQ/L (136-145)
[2018-10-16] MEDS: MIRALAX *UNIT DOSE* 17GM PACKET PO SCH (08:31)
[2018-10-16] MEDS: MOM 30ML SUSPENSION UDC PO SCH (08:31)
[2018-10-16] MEDS: RESTASIS (PATIENT'S OWN MED) OU SCH (08:32)
[2018-10-16] MEDS: OMEPRAZOLE 20 MG CAP PO SCH (08:32)
[2018-10-16] MEDS: SENOKOT S TAB PO SCH (08:32)
[2018-10-16] MEDS ORDERED: POTASSIUM CHLORIDE 10 MEQ SR TABLET PO ONE (09:00)
--- NOTE | 2018-10-16 12:50 | IPNPDOC ---
Subjective Date Seen The patient was seen on 10/16/18. Subjective Chief Complaint/HPI Patient is comfortable offers no new complaints at the present time General: Denies: ROS Unobtainable, Chills, Night Sweats, Fatigue, Malaise, Normal Appetite, Other Symptoms Constitutional: Denies: Chills, Fever, Malaise, Night Sweats, Weakness, Fatigue, Weight Loss, Lethargy, Other Eyes: Denies: Pain, Vision change, Conjunctivae inflammation, Eyelid inflammation, Redness, Other ENT: Denies: Head Aches, Ear Pain, Dysphagia, Sinus Congestion, Post Nasal Drip, Sore Throat, Epistaxis, Other Symptoms Skin: Denies: Rash, Lesions, Jaundice, Bruising, Itching, Dry, Breakdown, Nail Changes, Other Pulmonary: Denies: Dyspnea, Cough, Pleuritic Chest Pain, Other Symptoms Cardiovascular: Denies: Chest Pain, Palpitations, Orthopnea, Paroxysmal Noc. Dyspnea, Edema, Lt Headedness, Other Symptoms Endocrine: Denies: Polydipsia, Polyphagia, Polyuria, Heat Intolerance, Cold In tolerance, Other Endocrine Sx Musculoskeletal: Denies: Neck Pain, Back Pain, Shoulder Pain, Arm Pain, Hand Pain, Leg Pain, Foot Pain, Joint Pain, Muscle Pain, Spasms, Other Symptoms Neurological: Denies: Weakness, Numbness, Incoordination, Change in speech, Confusion, Seizures, Other Symptoms Objective Physical Examination General Exam: Positive: Alert, Cooperative, No Acute Distress Eye Exam: Positive: PERRLA, Conjunctiva & lids normal ENT Exam: Positive: Atraumatic, Mucous membr. moist/pink Neck Exam: Positive: Supple Chest Exam: Positive: Clear to auscultation, Normal air movement Heart Exam: Positive: Rate Normal, Normal S1, Normal S2 Abdomen Exam: Positive: Normal bowel sounds, Soft, Tenderness Extremity Exam: Positive: Normal pulses Skin Exam: Positive: Nl turgor and temperature Neuro Exam: Positive: Normal Gait, Normal Speech Assessment /Plan Problems (1) Status post total hip replacement, right Status: Acute Problem Text: Patient is status post right total hip replacement Pain control Physical therapy Compressional therapy Possible discharge subacute area facility Hypokalemia Potassium supplement and Labs in a.m. Chronic dry eyes: On Restasis, latanoprost. History of TIA: Currently Xarelto. History of ulcerative colitis: No acute symptoms. History of dyslipidemia: Check fasting lipid profile. History of basal and squamous cell carcinoma right cheek. Outpatient followup. History of lung granulomas: Stable. Plan/VTE VTE Prophylaxis Ordered?: Yes VS, I&O, 24H, Fishbone Vital Signs/I&O Vital Signs Date Time Temp Pulse Resp B/P (MAP) Pulse Ox O2 Delivery O2 Flow Rate FiO2 10/16/18 05:06 98.3 82 18 122/63 (82) 95 10/14/18 11:40 2.0 I&O- Last 24 Hours up to 6 AM 10/16/18 05:59 Intake Total 400 ml Output Total 1775 ml Balance -1375 ml Laboratory Data 24H LABS Laboratory Tests 2 10/16/18 06:34: Nucleated Red Blood Cells % (auto) 0.0, Anion Gap 4L, Glomerular Filtration Rate > 60.0, Blood Urea Nitrogen 11, Creatinine 0.60, Sodium Level 143, Potassium Level 3.4L, Chloride Level 109H, Carbon Dioxide Level 30, Calcium Level 7.9L CBC/BMP Laboratory Tests 10/16/18 06:34 Red Blood Count 3.28 L, Mean Corpuscular Volume 90.2, Mean Corpuscular Hemoglobin 29.3, Mean Corpuscular Hemoglobin Concent 32.4, Red Cell Distribution Width 12.6, Calcium Level 7.9 L RACHEL PAZ MD Oct 16, 2018 12:50
== END 2018-10-16 13:17 | disposition home or self-care (01) | DRG 470 ==
LOC: M OR 06:00 → M MS5PR 11:30
PROVIDERS: ADMIT Orthopaedic Surgery; ATTEND Orthopaedic Surgery
PROC: 0SR902Z Replacement of Right Hip Joint with Metal on Polyethylene Synthetic Substitute, Open Approach (ICD-10-PCS; principal; 2018-10-14 07:30)
DX: M16.11 Unilateral primary osteoarthritis, right hip (principal); K51.90 Ulcerative colitis, unspecified, without complications; H04.123 Dry eye syndrome of bilateral lacrimal glands; L43.9 Lichen planus, unspecified; E78.5 Hyperlipidemia, unspecified; J84.10 Pulmonary fibrosis, unspecified; R26.89 Other abnormalities of gait and mobility; Z86.73 Personal history of transient ischemic attack (TIA), and cerebral infarction without residual deficits; Z85.828 Personal history of other malignant neoplasm of skin; Z79.82 Long term (current) use of aspirin; Z79.899 Other long term (current) drug therapy; Z90.710 Acquired absence of both cervix and uterus; Z87.891 Personal history of nicotine dependence

== ENCOUNTER 2018-10-28 10:38 | Outpatient (CLI) | payer MEDICARE, OTHER ==
[~2018-10-28] VITALS: Ht 172.7 cm; Wt 67.5 kg
[~2018-10-28 10:38] MED LIST changes: +ACET-683 PO; +ACET-839 PO; -ACETAMINOPHEN 500 MG TAB PO ONE; +LOPE2TAB14 PO; -LR 1,000 ML IV ONE; +PERC5TAB12 PO; +TRAM50TA2 PO; +XALA0.007 OP; +XARE10TA PO
[2018-10-28 10:45] VITALS: BP 137/68
[2018-10-28] MEDS ORDERED: VEDOLIZUMAB 300 MG in NS 250 ML IV ONE (11:00)
[2018-10-28 11:45] VITALS: BP 120/58
[2018-10-28 12:00] VITALS: BP 127/59
== END 2018-10-28 12:00 | disposition home or self-care (01) ==
LOC: M INFU 10:38
PROVIDERS: ATTEND Internal Medicine Gastroenterology
DX: K51.90 Ulcerative colitis, unspecified, without complications (principal)
CPT/HCPCS: 96365; J3380

== ENCOUNTER → 2018-11-19 | Outpatient (REF) | payer MEDICARE, OTHER ==
[2018-11-20 12:50] LABS: BASO # 0.1 10^3/uL (0.0-0.2); BASO % 0.8 % (0.0-1.0); EOS # 0.1 10^3/uL (0.0-0.5); EOS % 1.6 % (0.0-3.0); HEMATOCRIT 37.9 % (36.0-47.0); HEMOGLOBIN 11.8 g/dl (12.0-15.5); LYMPH # 1.8 10^3/uL (1.5-5.0); LYMPH % 24.1 % (24.0-44.0); MEAN CORPUSCULAR HGB CONC 31.1 g/dl (32.0-36.5); MEAN CORPUSCULAR VOLUME 89.8 fl (80.0-96.0); MONO # 0.5 10^3/uL (0.0-0.8); MONO % 6.9 % (0.0-5.0); NEUTROPHILS # 4.9 10^3/uL (1.5-8.5); NEUTROPHILS % 66.5 % (36.0-66.0); PLATELET COUNT, AUTOMATED 302 10^3/uL (150-450); RED BLOOD COUNT 4.22 10^6/uL (4.00-5.40); WHITE BLOOD COUNT 7.4 10^3/uL (4.0-10.0)
== END ==
LOC: M LABDRAWC 12:06
PROVIDERS: ATTEND Physician Assistant Surgical
DX: Z47.1 Aftercare following joint replacement surgery (principal); Z96.641 Presence of right artificial hip joint

== ENCOUNTER → 2019-07-09 | Outpatient (REF) | payer MEDICARE, OTHER ==
[2019-07-09 12:11] LABS: ALBUMIN 3.7 GM/DL (3.2-5.2); ALT/SGPT 23 U/L (12-78); BILIRUBIN,TOTAL 0.5 MG/DL (0.2-1.0); BLOOD UREA NITROGEN 15 MG/DL (7-18); CALCIUM LEVEL 8.9 MG/DL (8.8-10.2); CARBON DIOXIDE LEVEL 31 MEQ/L (21-32); CHLORIDE LEVEL 108 MEQ/L (98-107); GLOMERULAR FILTRATION RATE > 60.0 (>39); GLUCOSE, FASTING 90 MG/DL (70-100); IRON (FE) 88 UG/DL (50-170); PERCENT SATURATION 34.5 % (13.2-45.0); POTASSIUM SERUM 4.2 MEQ/L (3.5-5.1); SODIUM LEVEL 144 MEQ/L (136-145); TOTAL IRON BINDING CAPACITY 255 UG/DL (250-450); TOTAL PROTEIN 6.7 GM/DL (6.4-8.2)
[2019-07-09 12:19] LABS: VITAMIN B12 LEVEL 391 PG/ML (247-911)
[2019-07-09 12:34] LABS: BASO # 0.1 10^3/uL (0.0-0.2); BASO % 1.6 % (0.0-1.0); EOS # 0.2 10^3/uL (0.0-0.5); EOS % 4.6 % (0.0-3.0); HEMATOCRIT 40.7 % (36.0-47.0); HEMOGLOBIN 13.4 g/dl (12.0-15.5); LYMPH # 1.2 10^3/uL (1.5-5.0); LYMPH % 26.5 % (24.0-44.0); MEAN CORPUSCULAR HEMOGLOBIN 30.9 pg (27.0-33.0); MEAN CORPUSCULAR HGB CONC 32.9 g/dl (32.0-36.5); MEAN CORPUSCULAR VOLUME 93.8 fl (80.0-96.0); MONO # 0.4 10^3/uL (0.0-0.8); MONO % 8.7 % (0.0-5.0); NEUTROPHILS # 2.6 10^3/uL (1.5-8.5); NEUTROPHILS % 58.4 % (36.0-66.0); PLATELET COUNT, AUTOMATED 240 10^3/uL (150-450); RED BLOOD COUNT 4.34 10^6/uL (4.00-5.40); WHITE BLOOD COUNT 4.4 10^3/uL (4.0-10.0)
== END ==
LOC: M LABDRAWC 11:29
PROVIDERS: ATTEND Internal Medicine Gastroenterology
DX: K51.30 Ulcerative (chronic) rectosigmoiditis without complications (principal); E78.00 Pure hypercholesterolemia, unspecified

== ENCOUNTER → 2019-07-09 | Outpatient (REF) | payer MEDICARE, OTHER ==
[2019-07-09 21:30] LABS: ALBUMIN 3.7 GM/DL (3.2-5.2); ALT/SGPT 20 U/L (12-78); BILIRUBIN,TOTAL 0.5 MG/DL (0.2-1.0); BLOOD UREA NITROGEN 15 MG/DL (7-18); CALCIUM LEVEL 8.8 MG/DL (8.8-10.2); CARBON DIOXIDE LEVEL 28 MEQ/L (21-32); CHLORIDE LEVEL 108 MEQ/L (98-107); CHOLESTEROL LEVEL 278 MG/DL (<200); CHOLESTEROL RISK RATIO 4.028 (<5); GLOMERULAR FILTRATION RATE > 60.0 (>39); GLUCOSE, FASTING 89 MG/DL (70-100); HDL CHOLESTEROL 69 MG/DL (>40); LDL CHOLESTEROL 182 MG/DL (<100); NON-HDL-C 209 MG/DL; POTASSIUM SERUM 4.3 MEQ/L (3.5-5.1); SODIUM LEVEL 145 MEQ/L (136-145); TOTAL PROTEIN 6.6 GM/DL (6.4-8.2); TRIGLYCERIDES LEVEL 136 MG/DL (<150)
[2019-07-09 22:03] LABS: HEMATOCRIT 40.7 % (36.0-47.0); HEMOGLOBIN 13.4 g/dl (12.0-15.5); MEAN CORPUSCULAR HEMOGLOBIN 30.9 pg (27.0-33.0); MEAN CORPUSCULAR HGB CONC 32.9 g/dl (32.0-36.5); MEAN CORPUSCULAR VOLUME 93.8 fl (80.0-96.0); PLATELET COUNT, AUTOMATED 240 10^3/uL (150-450); RED BLOOD COUNT 4.34 10^6/uL (4.00-5.40); WHITE BLOOD COUNT 4.4 10^3/uL (4.0-10.0)
== END ==
LOC: M LABDRAWC 11:32
PROVIDERS: ATTEND Internal Medicine
DX: E78.00 Pure hypercholesterolemia, unspecified (principal); K50.111 Crohn's disease of large intestine with rectal bleeding

== ENCOUNTER 2019-08-04 13:18 | Outpatient (CLI) | payer MEDICARE, OTHER ==
[~2019-08-04] VITALS: Ht 264.2 cm; Wt 67.3 kg
[2019-08-04] MEDS ORDERED: VEDOLIZUMAB 300 MG in NS 250 ML IV ONE (13:30)
[2019-08-04 13:40] VITALS: BP 142/66
[2019-08-04 14:45] VITALS: BP 123/58
== END 2019-08-04 14:45 | disposition home or self-care (01) ==
LOC: M INFU 13:18
PROVIDERS: ATTEND Internal Medicine Gastroenterology
DX: K51.90 Ulcerative colitis, unspecified, without complications (principal); Z88.8 Allergy status to other drugs, medicaments and biological substances
CPT/HCPCS: 96365; J3380

== ENCOUNTER → 2019-08-17 | Outpatient (REF) | payer MEDICARE, OTHER ==
[~2019-08-17] MED LIST changes: +ACET-908 PO; +ALEV220T22 PO; +ASPI1CHW3 PO; -ASPI81TA85 PO; +ASPI81TA86 PO; +ESTR62CR PV; +ROSU5TAB5 PO; +VALT500T PO; -XALA0.007 OP; +XALA0.007 OU
[2019-08-17 17:24] LABS: BASO # 0.1 10^3/uL (0.0-0.2); BASO % 1.1 % (0.0-1.0); EOS # 0.1 10^3/uL (0.0-0.5); EOS % 1.7 % (0.0-3.0); HEMATOCRIT 41.8 % (36.0-47.0); HEMOGLOBIN 13.6 g/dl (12.0-15.5); LYMPH # 1.4 10^3/uL (1.5-5.0); LYMPH % 21.4 % (24.0-44.0); MEAN CORPUSCULAR HEMOGLOBIN 31.3 pg (27.0-33.0); MEAN CORPUSCULAR HGB CONC 32.5 g/dl (32.0-36.5); MEAN CORPUSCULAR VOLUME 96.3 fl (80.0-96.0); MONO # 0.4 10^3/uL (0.0-0.8); MONO % 6.8 % (0.0-5.0); NEUTROPHILS # 4.5 10^3/uL (1.5-8.5); NEUTROPHILS % 68.7 % (36.0-66.0); PLATELET COUNT, AUTOMATED 222 10^3/uL (150-450); RED BLOOD COUNT 4.34 10^6/uL (4.00-5.40); WHITE BLOOD COUNT 6.5 10^3/uL (4.0-10.0)
== END ==
LOC: M LABDRAWC 16:12
PROVIDERS: ATTEND Internal Medicine
DX: G45.9 Transient cerebral ischemic attack, unspecified (principal)

== ENCOUNTER → 2019-08-28 | Outpatient (REF) | payer MEDICARE, OTHER | LOC: M LAB REF 12:07 | PROVIDERS: ATTEND Internal Medicine | DX: N94.10 Unspecified dyspareunia (principal); N95.2 Postmenopausal atrophic vaginitis ==

== ENCOUNTER → 2019-09-16 | Outpatient (REF) | payer MEDICARE, OTHER ==
[2019-11-13 21:28] LABS: CHOLESTEROL RISK RATIO 3.189 (<5)
== END ==
LOC: M LAB REF 14:38
PROVIDERS: ATTEND Internal Medicine
DX: E78.00 Pure hypercholesterolemia, unspecified (principal)

== ENCOUNTER 2019-09-30 10:23 | Outpatient (CLI) | payer MEDICARE, OTHER ==
[~2019-09-30 10:23] MED LIST changes: -ACET-908 PO; -ALEV220T22 PO; -ASPI1CHW3 PO; -ESTR62CR PV; -ROSU5TAB5 PO; -VALT500T PO
[2019-09-30 10:30] VITALS: BP 146/68
[2019-09-30] MEDS ORDERED: VEDOLIZUMAB 300 MG in NS 250 ML IV ONE (10:45)
[2019-09-30 11:30] VITALS: BP 144/66
[2019-12-03] MEDS ORDERED: ASPI1CHW3 PO (12:53)
[2019-12-03] MEDS ORDERED: ACET-908 PO (12:53)
[2019-12-03] MEDS ORDERED: ROSU5TAB5 PO (12:53)
[2019-12-03] MEDS ORDERED: ESTR62CR PV (12:53)
[2019-12-03] MEDS ORDERED: ALEV220T22 PO (12:53)
== END 2019-09-30 11:30 | disposition home or self-care (01) ==
LOC: M INFU 10:23
PROVIDERS: ATTEND Internal Medicine Gastroenterology
DX: K51.90 Ulcerative colitis, unspecified, without complications (principal)
CPT/HCPCS: 96365; J3380

== ENCOUNTER 2019-11-25 14:19 | Outpatient (CLI) | payer MEDICARE, OTHER ==
[~2019-11-25] VITALS: Ht 162.6 cm; Wt 67.3 kg
[2019-11-25 14:25] VITALS: BP 122/64
[2019-11-25] MEDS: VEDOLIZUMAB 300 MG in NS 250 ML IV ONE (14:52)
[2019-11-25 15:39] VITALS: BP 135/74
[2019-12-03] MEDS ORDERED: ASPI1CHW3 PO (12:53)
[2019-12-03] MEDS ORDERED: ACET-908 PO (12:53)
[2019-12-03] MEDS ORDERED: ESTR62CR PV (12:53)
[2019-12-03] MEDS ORDERED: ALEV220T22 PO (12:53)
[2019-12-03] MEDS ORDERED: ROSU5TAB5 PO (12:53)
== END 2019-11-25 15:40 | disposition home or self-care (01) ==
LOC: M INFU 14:19
PROVIDERS: ATTEND Internal Medicine Gastroenterology
DX: K51.90 Ulcerative colitis, unspecified, without complications (principal)
CPT/HCPCS: 96365; J3380

== ENCOUNTER → 2019-12-03 | Outpatient (REF) | payer MEDICARE, OTHER ==
[~2019-12-03] MED LIST changes: +ACET-908 PO; +ALEV220T22 PO; +ASPI1CHW3 PO; +ESTR62CR PV; +ROSU5TAB5 PO; +VALT500T PO
[2019-12-03 12:53] LABS: CHOLESTEROL RISK RATIO 2.313 (<5)
== END ==
LOC: M LABDRAWC 11:23
PROVIDERS: ATTEND Internal Medicine
DX: E78.00 Pure hypercholesterolemia, unspecified (principal)

== ENCOUNTER → 2019-12-05 | Outpatient (CLI) | payer MEDICARE, OTHER | LOC: M LABSMTC 10:55 | PROVIDERS: ATTEND Anesthesiology | DX: Z01.812 Encounter for preprocedural laboratory examination (principal); Z20.828 Contact with and (suspected) exposure to other viral communicable diseases | CPT/HCPCS: C9803; U0003 ==

== ENCOUNTER 2019-12-10 07:31 | Day surgery (SDC) | payer MEDICARE, OTHER ==
[~2019-12-10] VITALS: Ht 172.7 cm; Wt 67.2 kg
[~2019-12-10 07:31] MED LIST changes: +BSS IRR 500ML/OMIDRIA 4ML IRR BAG (OR ONLY) (J1097 PER ML) As Ordered ONE; +CEFUROXIME 1MG/0.1ML INTRACAMERAL INJ As Ordered ONE; +DUOVISC (0.50ML VISCOAT/0.55ML PROVISC) OPHTH KIT As Ordered ONE; +OFLOXACIN 0.3 % (OCUFLOX) OPTH SOL 5ML OD ONE; +PHENYLEPHRINE 2.5% OPHTH SOL 2ML OD ONE; +PROPARACAINE 0.5% OPHTH SOL 15ML OD ONE; +TROPICAMIDE 1% OPHTH SOLN 2ML OD ONE; -VALT500T PO
[2019-12-10] MEDS ORDERED: VALT500T PO (08:16)
[2019-12-10] MEDS ORDERED: POVIDONE-IODINE 5% OPHTH PREP SOL 30ML As Ordered ONE (08:28)
[2019-12-10] MEDS ORDERED: ceFAZolin 1GM VIAL (J0690 PER 500MG) As Ordered ONE (08:53)
[2019-12-10] MEDS ORDERED: ceFAZolin SOD 1 GM in D5W MINI-BAG PLUS 50 ML IV ONE (09:00)
[2019-12-10] MEDS ORDERED: fentaNYL 100 MCG/2 ML INJECTION (J3010) As Ordered ONE (09:44)
[2019-12-10] MEDS ORDERED: MIDAZOLAM INJ 2MG/2ML VIAL (J2250 PER 1MG) As Ordered ONE (09:44)
[2019-12-10 10:30] VITALS: BP 134/73
== END 2019-12-10 10:47 | disposition home or self-care (01) ==
LOC: M SDC 07:31
PROVIDERS: ATTEND Ophthalmology
DX: H25.11 Age-related nuclear cataract, right eye (principal); E78.5 Hyperlipidemia, unspecified; K57.92 Diverticulitis of intestine, part unspecified, without perforation or abscess without bleeding; D64.9 Anemia, unspecified; G43.909 Migraine, unspecified, not intractable, without status migrainosus; Z79.82 Long term (current) use of aspirin; Z79.899 Other long term (current) drug therapy; Z86.73 Personal history of transient ischemic attack (TIA), and cerebral infarction without residual deficits; Z87.891 Personal history of nicotine dependence
CPT/HCPCS: 66984; J0690; J1097; J2250; J3010; V2632

== ENCOUNTER → 2019-12-29 | Outpatient (REF) | payer MEDICARE, OTHER ==
[~2019-12-29] MED LIST changes: -BSS IRR 500ML/OMIDRIA 4ML IRR BAG (OR ONLY) (J1097 PER ML) As Ordered ONE; -CEFUROXIME 1MG/0.1ML INTRACAMERAL INJ As Ordered ONE; -DUOVISC (0.50ML VISCOAT/0.55ML PROVISC) OPHTH KIT As Ordered ONE; -OFLOXACIN 0.3 % (OCUFLOX) OPTH SOL 5ML OD ONE; -PHENYLEPHRINE 2.5% OPHTH SOL 2ML OD ONE; -PROPARACAINE 0.5% OPHTH SOL 15ML OD ONE; -TROPICAMIDE 1% OPHTH SOLN 2ML OD ONE; +VALT500T PO
[2019-12-29 16:13] LABS: BASO # 0.1 10^3/uL (0.0-0.2); EOS # 0.2 10^3/uL (0.0-0.5); EOS % 3.4 % (0.0-3.0); HEMATOCRIT 39.4 % (36.0-47.0); HEMOGLOBIN 12.3 g/dl (12.0-15.5); LYMPH # 1.4 10^3/uL (1.5-5.0); LYMPH % 26.6 % (24.0-44.0); MEAN CORPUSCULAR HEMOGLOBIN 29.2 pg (27.0-33.0); MEAN CORPUSCULAR HGB CONC 31.2 g/dl (32.0-36.5); MEAN CORPUSCULAR VOLUME 93.6 fl (80.0-96.0); MONO # 0.4 10^3/uL (0.0-0.8); MONO % 7.9 % (0.0-5.0); NEUTROPHILS # 3.2 10^3/uL (1.5-8.5); NEUTROPHILS % 60.7 % (36.0-66.0); PLATELET COUNT, AUTOMATED 218 10^3/uL (150-450); RED BLOOD COUNT 4.21 10^6/uL (4.00-5.40); WHITE BLOOD COUNT 5.2 10^3/uL (4.0-10.0)
[2019-12-29 16:50] LABS: PERCENT SATURATION 14.8 % (13.2-45.0)
== END ==
LOC: M LABDRAWC 15:42
PROVIDERS: ATTEND Internal Medicine Gastroenterology
DX: K51.30 Ulcerative (chronic) rectosigmoiditis without complications (principal)

== ENCOUNTER → 2019-12-30 | Outpatient (REF) | payer MEDICARE, OTHER | LOC: M LAB REF 11:13 | PROVIDERS: ATTEND Internal Medicine Gastroenterology | DX: K51.30 Ulcerative (chronic) rectosigmoiditis without complications (principal) ==

== ENCOUNTER → 2020-06-28 | Outpatient (REF) | payer MEDICARE, OTHER ==
[~2020-06-28] MED LIST changes: -ACET-908 PO; +ACET-910 PO; +ASPI-569 PO; -ASPI81TAEC PO; +B-12100011 SL; +NAPR-849 PO; -NAPR250T4 PO
[2020-07-01 16:08] LABS: ANTI-PARIETAL CELL ANTIBODY 12.8 Units (0.0-20.0)
== END ==
LOC: M LABDRAWC 11:20
PROVIDERS: ATTEND Internal Medicine Gastroenterology
DX: K51.30 Ulcerative (chronic) rectosigmoiditis without complications (principal)

== ENCOUNTER → 2020-06-29 | Outpatient (REF) | payer MEDICARE, OTHER | LOC: M LAB REF 11:40 | PROVIDERS: ATTEND Internal Medicine Gastroenterology | DX: K51.30 Ulcerative (chronic) rectosigmoiditis without complications (principal) ==

== ENCOUNTER → 2020-06-30 | Outpatient (CLI) | payer MEDICARE, OTHER ==
[~2020-06-30] MED LIST changes: -B-12100011 SL
== END ==
LOC: M LABSMTC 10:41
PROVIDERS: ATTEND Anesthesiology
DX: Z01.812 Encounter for preprocedural laboratory examination (principal); Z20.822 Contact with and (suspected) exposure to COVID-19

== ENCOUNTER → 2020-07-05 | Day surgery (SDC) | payer MEDICARE, OTHER ==
[~2020-07-05] VITALS: Ht 172.7 cm; Wt 65.3 kg
[~2020-07-05] MED LIST changes: +B-12100011 SL; +LIDOCAINE 2% 100MG/5ML SDV (FOR ANES.) As Ordered ONE; +NS 1,000 ML IV ONE; +fentaNYL 100 MCG/2 ML INJECTION (J3010) As Ordered ONE; +propofoL 200 MG/20 ML VIAL As Ordered ONE
--- NOTE | 2020-07-05 10:36 | ROOR ---
Patient Name: Elza Donohue Procedure Date: 07/05/2020 10:20 AM Date of : 1945 Age: 75 Room: [facility] Gender: Female Note Status: Finalized Procedure: Upper GI endoscopy Indications: Iron deficiency anemia Providers: Gulshan Titus MD Referring MD: PATTI FRANKLIN JR, MD Requesting Provider: Medicines: Monitored Anesthesia Care Complications: No immediate complications. Procedure: Pre-Anesthesia Assessment: - The heart rate, respiratory rate, oxygen saturations, blood pressure, adequacy of pulmonary ventilation, and response to care were monitored throughout the procedure. The Endoscope was introduced through the mouth, and advanced to the third part of duodenum. The upper GI endoscopy was accomplished without difficulty. The patient tolerated the procedure well. Findings: The examined esophagus was normal. Very small (insignificant) Hiatal Hernia. Mildly erythematous mucosa was found in the gastric antrum. Biopsies were taken with a cold forceps for histology. The exam of the stomach was otherwise normal. The examined duodenum was normal. Biopsies for histology were taken with a cold forceps for evaluation of celiac disease. Impression: - Normal esophagus. - Very small (insignificant) Hiatal Hernia. - Mildly erythematous mucosa in the antrum. Biopsied. - The stomach is otherwise normal. - Normal examined duodenum. Biopsied. Recommendation: - Await pathology results. - Telephone endoscopist for pathology results in 2 weeks. Procedure Code(s): --- Professional --- 57771, Esophagogastroduodenoscopy, flexible, transoral; with biopsy, single or multiple Diagnosis Code(s): --- Professional --- D50.9, Iron deficiency anemia, unspecified K31.89, Other diseases of stomach and duodenum CPT copyright 2019 [employer]. All rights reserved. The codes documented in this report are preliminary and upon locksmith helper review may be revised to meet current compliance requirements. Gulshan Titus MD Gulshan Titus MD 07/05/2020 10:36:09 AM Electronically signed by Gulshan Titus MD Number of Addenda: 0 Note Initiated On: 07/05/2020 10:20 AM Estimated Blood Loss: Estimated blood loss: none.
--- NOTE | 2020-07-05 11:05 | ROOR ---
Patient Name: Elza Donohue Procedure Date: 07/05/2020 10:22 AM Date of : 1945 Age: 75 Room: [facility] Gender: Female Note Status: Finalized Procedure: Colonoscopy Indications: Iron deficiency anemia, Follow-up of left-sided chronic ulcerative colitis Providers: Gulshan Titus MD Referring MD: PATTI FRANKLIN JR, MD Requesting Provider: Medicines: Monitored Anesthesia Care Complications: No immediate complications. Procedure: Pre-Anesthesia Assessment: - The heart rate, respiratory rate, oxygen saturations, blood pressure, adequacy of pulmonary ventilation, and response to care were monitored throughout the procedure. The Colonoscope was introduced through the anus and advanced to 15 cm into the ileum. The colonoscopy was performed without difficulty. The patient tolerated the procedure well. The quality of the bowel preparation was good. Findings: The perianal and digital rectal examinations were normal. The terminal ileum appeared normal. Segmental mild mucosal changes characterized by erythema and scarring were found from anus to descending colon. A 5 mm polyp was found at 25 cm proximal to the anus. The polyp was semi-pedunculated. The polyp was removed with a hot snare. Resection and retrieval were complete. The exam was otherwise normal throughout the examined colon. Biopsies were taken with a cold forceps in the rectum, in the sigmoid colon, in the descending colon, in the transverse colon and in the ascending colon for histology. Impression: - The examined portion of the ileum was normal. - Segmental minimal mucosal changes (erythema and mucosal scarring) were found from anus to mid descending colon secondary to left-sided ulcerative colitis. Visually, the mucosal appearance today, is a significant improvement from previous examination. - One 5 mm polyp at 25 cm proximal to the anus, removed with a hot snare. Resected and retrieved. - Biopsies were taken with a cold forceps for histology in the rectum, in the sigmoid colon, in the descending colon, in the transverse colon and in the ascending colon. Recommendation: - Continue present medications. - Telephone endoscopist for pathology results in 2 weeks. Procedure Code(s): --- Professional --- 54188, Colonoscopy, flexible; with removal of tumor(s), polyp(s), or other lesion(s) by snare technique 43113, 59, Colonoscopy, flexible; with biopsy, single or multiple Diagnosis Code(s): --- Professional --- D50.9, Iron deficiency anemia, unspecified K63.5, Polyp of colon K51.50, Left sided colitis without complications CPT copyright 2019 [employer]. All rights reserved. The codes documented in this report are preliminary and upon operations trainer review may be revised to meet current compliance requirements. Gulshan Titus MD Gulshan Titus MD 07/05/2020 11:04:47 AM Electronically signed by Gulshan Titus MD Number of Addenda: 0 Note Initiated On: 07/05/2020 10:22 AM Estimated Blood Loss: Estimated blood loss: none.
[2020-07-05 11:20] VITALS: BP 132/67
== END | disposition home or self-care (01) ==
LOC: M OPP 09:34
PROVIDERS: ATTEND Internal Medicine Gastroenterology
DX: D12.5 Benign neoplasm of sigmoid colon (principal); K64.8 Other hemorrhoids; D50.9 Iron deficiency anemia, unspecified; K31.89 Other diseases of stomach and duodenum; K44.9 Diaphragmatic hernia without obstruction or gangrene; Z79.82 Long term (current) use of aspirin; Z79.899 Other long term (current) drug therapy; Z88.8 Allergy status to other drugs, medicaments and biological substances; Z87.891 Personal history of nicotine dependence
CPT/HCPCS: 43239; 45380; 45385; 88305; J3010

== ENCOUNTER 2020-07-07 07:58 | Outpatient (CLI) | payer MEDICARE, OTHER ==
[~2020-07-07] VITALS: Ht 162.6 cm; Wt 67.3 kg
[~2020-07-07 07:58] MED LIST changes: -LIDOCAINE 2% 100MG/5ML SDV (FOR ANES.) As Ordered ONE; -NS 1,000 ML IV ONE; -fentaNYL 100 MCG/2 ML INJECTION (J3010) As Ordered ONE; -propofoL 200 MG/20 ML VIAL As Ordered ONE
[2020-07-07] MEDS ORDERED: VEDOLIZUMAB 300 MG in NS 250 ML IV ONE (08:00)
[2020-07-07 08:17] VITALS: BP 147/74
[2020-07-07 09:21] VITALS: BP 138/72
== END 2020-07-07 09:20 | disposition home or self-care (01) ==
LOC: M INFU 07:58
PROVIDERS: ATTEND Internal Medicine Gastroenterology
DX: K51.90 Ulcerative colitis, unspecified, without complications (principal); Z88.8 Allergy status to other drugs, medicaments and biological substances
CPT/HCPCS: 96365; J3380

== ENCOUNTER → 2020-07-14 | Outpatient (REF) | payer MEDICARE, OTHER ==
[2020-07-14 16:02] LABS: BASO # 0.1 10^3/uL (0.0-0.2); BASO % 1.3 % (0.0-1.0); EOS # 0.2 10^3/uL (0.0-0.5); EOS % 3.5 % (0.0-3.0); HEMATOCRIT 41.1 % (36.0-47.0); HEMOGLOBIN 13.3 g/dl (12.0-15.5); LYMPH # 1.4 10^3/uL (1.5-5.0); LYMPH % 31.2 % (24.0-44.0); MEAN CORPUSCULAR HGB CONC 32.4 g/dl (32.0-36.5); MEAN CORPUSCULAR VOLUME 95.8 fl (80.0-96.0); MONO # 0.5 10^3/uL (0.0-0.8); MONO % 9.8 % (2.0-8.0); NEUTROPHILS # 2.5 10^3/uL (1.5-8.5); PLATELET COUNT, AUTOMATED 229 10^3/uL (150-450); RED BLOOD COUNT 4.29 10^6/uL (4.00-5.40); WHITE BLOOD COUNT 4.6 10^3/uL (4.0-10.0)
[2020-07-14 16:06] LABS: ALBUMIN 3.7 GM/DL (3.2-5.2); ALT/SGPT 19 U/L (12-78); BILIRUBIN,TOTAL 0.4 MG/DL (0.2-1.0); BLOOD UREA NITROGEN 18 MG/DL (7-18); CALCIUM LEVEL 8.8 MG/DL (8.8-10.2); CARBON DIOXIDE LEVEL 31 MEQ/L (21-32); CHLORIDE LEVEL 109 MEQ/L (98-107); CHOLESTEROL LEVEL 181 MG/DL (<200); CHOLESTEROL RISK RATIO 2.234 (<5); CREATININE FOR GFR 0.63 MG/DL (0.55-1.30); GLOMERULAR FILTRATION RATE > 60.0 (>39); GLUCOSE, FASTING 89 MG/DL (70-100); HDL CHOLESTEROL 81 MG/DL (>40); LDL CHOLESTEROL 86 MG/DL (<100); NON-HDL-C 100 MG/DL; POTASSIUM SERUM 4.3 MEQ/L (3.5-5.1); SODIUM LEVEL 144 MEQ/L (136-145); TOTAL PROTEIN 6.4 GM/DL (6.4-8.2); TRIGLYCERIDES LEVEL 72 MG/DL (<150)
== END ==
LOC: M LABDRAWC 15:42
PROVIDERS: ATTEND Internal Medicine
DX: E78.00 Pure hypercholesterolemia, unspecified (principal); Z13.89 Encounter for screening for other disorder

== ENCOUNTER 2020-09-01 13:28 | Outpatient (CLI) | payer MEDICARE, OTHER ==
[~2020-09-01] VITALS: Ht 162.6 cm; Wt 67.3 kg
[~2020-09-01 13:28] MED LIST changes: +VEDOLIZUMAB 300 MG in NS 250 ML IV ONE
[2020-09-01 13:35] VITALS: BP 130/69
[2020-09-01 13:40] VITALS: BP 130/69
[2020-09-01 14:50] VITALS: BP 137/76
== END 2020-09-01 15:00 | disposition home or self-care (01) ==
LOC: M INFU 13:28
PROVIDERS: ATTEND Internal Medicine Gastroenterology
DX: K51.90 Ulcerative colitis, unspecified, without complications (principal); Z88.8 Allergy status to other drugs, medicaments and biological substances
CPT/HCPCS: 96365; J3380

== ENCOUNTER → 2020-10-10 | Outpatient (CLI) | payer MEDICARE, OTHER ==
[~2020-10-10] MED LIST changes: -VEDOLIZUMAB 300 MG in NS 250 ML IV ONE
--- NOTE | 2020-10-12 14:55 | HOLTMON ---
[facility] Test Date: 2020-10-10 Pat Name: ADRIANA OGLESBY Department: Room: - Gender: Female Perioperative Nurse: samantha : 1945 Requested By: Des Oconnell Order Number: [id number] Reading MD: Franck Fortune Interpretive Statements Heart rate variability was blunted. There were occasional PVC's and PAC's but no significant runs. No significant ST events or pauses. No atrial fibrillation was seen. No arrhythmia was evident during 2 events recorded in diary. Electronically Signed on 10-12-2020 14:54:40 EDT by Franck Fortune
== END ==
LOC: M EKG 10:02
PROVIDERS: ATTEND Internal Medicine
DX: R00.2 Palpitations (principal)

== ENCOUNTER 2020-10-27 11:10 | Outpatient (CLI) | payer MEDICARE, OTHER ==
[~2020-10-27 11:10] MED LIST changes: +VEDOLIZUMAB 300 MG in NS 250 ML IV ONE
[2020-10-27 11:15] VITALS: BP 128/65
[2020-10-27 11:45] VITALS: BP 115/69
[2020-10-27 12:45] VITALS: BP 159/77
== END 2020-10-27 12:55 | disposition home or self-care (01) ==
LOC: M INFU 11:10
PROVIDERS: ATTEND Internal Medicine Gastroenterology
DX: K51.90 Ulcerative colitis, unspecified, without complications (principal); Z88.8 Allergy status to other drugs, medicaments and biological substances
CPT/HCPCS: 96365; J3380

== ENCOUNTER 2020-12-22 10:57 | Outpatient (CLI) | payer MEDICARE, OTHER ==
[~2020-12-22] VITALS: Ht 157.5 cm; Wt 67.3 kg
[~2020-12-22 10:57] MED LIST changes: -VEDOLIZUMAB 300 MG in NS 250 ML IV ONE
[2020-12-22] MEDS ORDERED: VEDOLIZUMAB 300 MG in NS 250 ML IV ONE (11:00)
[2020-12-22 11:12] VITALS: BP 161/77
== END 2020-12-22 12:35 | disposition home or self-care (01) ==
LOC: M INFU 10:57
PROVIDERS: ATTEND Internal Medicine Gastroenterology
DX: K51.90 Ulcerative colitis, unspecified, without complications (principal); Z88.8 Allergy status to other drugs, medicaments and biological substances
CPT/HCPCS: 96365; J3380

== ENCOUNTER 2021-08-04 13:06 | Outpatient (CLI) | payer MEDICARE, OTHER ==
[~2021-08-04] VITALS: Ht 165.1 cm; Wt 67.0 kg
[~2021-08-04 13:06] MED LIST changes: -DICY20TA11 PO; +DICY20TA20 PO; +VEDOLIZUMAB 300 MG in NS 250 ML IV ONE
[2021-08-04 13:34] VITALS: BP 128/69
[2021-08-04 14:50] VITALS: BP 146/70
== END 2021-08-04 14:50 | disposition home or self-care (01) ==
LOC: M INFU 13:06
PROVIDERS: ATTEND Internal Medicine Gastroenterology
DX: K51.919 Ulcerative colitis, unspecified with unspecified complications (principal); Z88.8 Allergy status to other drugs, medicaments and biological substances
CPT/HCPCS: 96365; J3380

== ENCOUNTER → 2021-09-12 | Outpatient (REF) | payer MEDICARE, OTHER ==
[~2021-09-12] MED LIST changes: -VEDOLIZUMAB 300 MG in NS 250 ML IV ONE
[2021-09-12 17:28] LABS: BLOOD UREA NITROGEN 18 MG/DL (7-18); CREATININE FOR GFR 0.75 MG/DL (0.55-1.30); GLOMERULAR FILTRATION RATE > 60.0 (>39)
== END ==
LOC: M LABDRAWC 16:46
PROVIDERS: ATTEND Internal Medicine Gastroenterology
DX: D50.0 Iron deficiency anemia secondary to blood loss (chronic) (principal)

== ENCOUNTER → 2021-09-18 | Outpatient (CLI) | payer MEDICARE, OTHER ==
[~2021-09-18] MED LIST changes: +GLUCAGON INJ 1MG VIAL As Ordered ONE; +ISOVUE-370 76% 100ML VIAL As Ordered ONE; +NEULUMEX 0.1% SUSPENSION 450ML BOTTLE (FORMERLY VOLUMEN) As Ordered ONE
== END ==
LOC: M RAD 07:47
PROVIDERS: ATTEND Internal Medicine Gastroenterology
DX: D50.0 Iron deficiency anemia secondary to blood loss (chronic) (principal); R19.5 Other fecal abnormalities; Z96.641 Presence of right artificial hip joint; M16.12 Unilateral primary osteoarthritis, left hip
CPT/HCPCS: 74177; J1610; Q9967

== ENCOUNTER → 2021-09-25 | Outpatient (REF) | payer MEDICARE, OTHER ==
[~2021-09-25] MED LIST changes: -GLUCAGON INJ 1MG VIAL As Ordered ONE; -ISOVUE-370 76% 100ML VIAL As Ordered ONE; -NEULUMEX 0.1% SUSPENSION 450ML BOTTLE (FORMERLY VOLUMEN) As Ordered ONE
[2021-09-25 12:38] LABS: BASO # 0.1 10^3/uL (0.0-0.2); BASO % 1.1 % (0.0-1.0); EOS # 0.1 10^3/uL (0.0-0.5); EOS % 2.7 % (0.0-3.0); HEMATOCRIT 41.7 % (36.0-47.0); HEMOGLOBIN 13.2 g/dl (12.0-15.5); LYMPH # 1.1 10^3/uL (1.5-5.0); LYMPH % 22.6 % (24.0-44.0); MEAN CORPUSCULAR HEMOGLOBIN 30.3 pg (27.0-33.0); MEAN CORPUSCULAR HGB CONC 31.7 g/dl (32.0-36.5); MEAN CORPUSCULAR VOLUME 95.9 fl (80.0-96.0); MONO # 0.4 10^3/uL (0.0-0.8); MONO % 8.5 % (2.0-8.0); NEUTROPHILS # 3.1 10^3/uL (1.5-8.5); NEUTROPHILS % 64.5 % (36.0-66.0); PLATELET COUNT, AUTOMATED 241 10^3/uL (150-450); RED BLOOD COUNT 4.35 10^6/uL (4.00-5.40); WHITE BLOOD COUNT 4.7 10^3/uL (4.0-10.0)
[2021-09-25 13:39] LABS: ALBUMIN 3.8 GM/DL (3.2-5.2); ALT/SGPT 24 U/L (12-78); BILIRUBIN,TOTAL 0.6 MG/DL (0.2-1.0); BLOOD UREA NITROGEN 16 MG/DL (7-18); CALCIUM LEVEL 9.3 MG/DL (8.8-10.2); CARBON DIOXIDE LEVEL 30 MEQ/L (21-32); CHLORIDE LEVEL 109 MEQ/L (98-107); CHOLESTEROL LEVEL 205 MG/DL (<200); CHOLESTEROL RISK RATIO 2.277 (<5); CREATININE FOR GFR 0.65 MG/DL (0.55-1.30); GLOMERULAR FILTRATION RATE > 60.0 (>39); GLUCOSE, FASTING 90 MG/DL (70-100); HDL CHOLESTEROL 90 MG/DL (>40); LDL CHOLESTEROL 93 MG/DL (<100); NON-HDL-C 115 MG/DL; POTASSIUM SERUM 4.3 MEQ/L (3.5-5.1); SODIUM LEVEL 139 MEQ/L (136-145); TOTAL PROTEIN 6.6 GM/DL (6.4-8.2); TRIGLYCERIDES LEVEL 108 MG/DL (<150)
[2021-09-25 14:31] LABS: TOTAL 25(OH) VITAMIN D 34.4 NG/ML (30.0-100.0)
== END ==
LOC: M LABDRAWC 11:15
PROVIDERS: ATTEND Internal Medicine
DX: E78.00 Pure hypercholesterolemia, unspecified (principal); R00.2 Palpitations; M85.9 Disorder of bone density and structure, unspecified

== ENCOUNTER 2021-09-29 11:25 | Outpatient (CLI) | payer MEDICARE, OTHER ==
[~2021-09-29] VITALS: Ht 165.1 cm; Wt 67.0 kg
[2021-09-29] MEDS ORDERED: VEDOLIZUMAB 300 MG in NS 250 ML IV ONE (12:30)
[2021-09-29 12:33] VITALS: BP 120/66
[2021-09-29 13:40] VITALS: BP 127/60
== END 2021-09-29 13:40 | disposition home or self-care (01) ==
LOC: M INFU 11:25
PROVIDERS: ATTEND Internal Medicine Gastroenterology
DX: K51.00 Ulcerative (chronic) pancolitis without complications (principal); Z88.8 Allergy status to other drugs, medicaments and biological substances
CPT/HCPCS: 96365; J3380

== ENCOUNTER → 2021-10-04 | Outpatient (REF) | payer MEDICARE, OTHER ==
[2021-10-04 16:54] LABS: PERCENT SATURATION 12.1 % (13.2-45.0)
== END ==
LOC: M LAB REF 16:13
PROVIDERS: ATTEND Internal Medicine
DX: D50.9 Iron deficiency anemia, unspecified (principal)

== ENCOUNTER → 2021-10-12 | Outpatient (CLI) | payer MEDICARE, OTHER | LOC: M WHC 14:27 | PROVIDERS: ATTEND Internal Medicine | DX: Z12.31 Encounter for screening mammogram for malignant neoplasm of breast (principal); M81.0 Age-related osteoporosis without current pathological fracture ==

== ENCOUNTER 2021-11-24 13:03 | Outpatient (CLI) | payer MEDICARE, OTHER ==
[~2021-11-24] VITALS: Ht 165.1 cm; Wt 67.0 kg
[2021-11-24 13:30] VITALS: BP 139/75
[2021-11-24] MEDS ORDERED: VEDOLIZUMAB 300 MG in NS 250 ML IV ONE (13:30)
[2021-11-24] MEDS ORDERED: IRON65TA2 PO (13:46)
[2021-11-24] MEDS ORDERED: VITAMIN D PO (13:48)
[2021-11-24 14:30] VITALS: BP 140/67
== END 2021-11-24 14:30 | disposition home or self-care (01) ==
LOC: M INFU 13:03
PROVIDERS: ATTEND Internal Medicine Gastroenterology
DX: K51.90 Ulcerative colitis, unspecified, without complications (principal); Z88.8 Allergy status to other drugs, medicaments and biological substances
CPT/HCPCS: 96365; J3380

== ENCOUNTER → 2021-12-07 | Outpatient (REF) | payer MEDICARE, OTHER ==
[~2021-12-07] MED LIST changes: +IRON65TA2 PO; +VITAMIN D PO
[2021-12-07 18:57] LABS: PERCENT SATURATION 40.4 % (13.2-45.0)
== END ==
LOC: M LABDRAWC 17:05
PROVIDERS: ATTEND Internal Medicine
DX: D50.9 Iron deficiency anemia, unspecified (principal)

== ENCOUNTER → 2022-07-03 | Outpatient (REF) | payer MEDICARE, OTHER ==
[~2022-07-03] MED LIST changes: +ASPI-655 PO; -ASPI1CHW3 PO
[2022-07-03 12:04] LABS: ALBUMIN 3.7 G/DL (3.2-5.2); ALKALINE PHOSPHATASE 70 U/L (46-116); ALT/SGPT 19 U/L (7.0-40); AST/SGOT 25 U/L (<34); BILIRUBIN,TOTAL 0.5 MG/DL (0.3-1.2); BLOOD UREA NITROGEN 19 MG/DL (9-23); CALCIUM LEVEL 9.2 MG/DL (8.3-10.6); CARBON DIOXIDE LEVEL 30 MMOL/L (20-31); CHLORIDE LEVEL 109 MMOL/L (98-107); CHOLESTEROL LEVEL 184 MG/DL (<200); CHOLESTEROL RISK RATIO 2.36 (<5); CREATININE FOR GFR 0.72 MG/DL (0.55-1.30); GLOMERULAR FILTRATION RATE > 60.0 (>39); GLUCOSE, FASTING 92 MG/DL (74-106); HDL CHOLESTEROL 77.9 MG/DL (>40); IRON (FE) 76 UG/DL (50-170); LDL CHOLESTEROL 88.7 MG/DL (<100); NON-HDL-C 106.1 MG/DL; PERCENT SATURATION 25.9 % (13.2-45.0); POTASSIUM SERUM 4.2 MMOL/L (3.5-5.1); SODIUM LEVEL 142 MMOL/L (136-145); TOTAL IRON BINDING CAPACITY 294 UG/DL (250-425); TOTAL PROTEIN 6.1 G/DL (5.7-8.2); TRIGLYCERIDES LEVEL 87 MG/DL (<150)
[2022-07-03 12:05] LABS: BASO # 0.1 10^3/uL (0.0-0.2); BASO % 1.3 % (0.0-1.0); EOS # 0.2 10^3/uL (0.0-0.5); EOS % 4.9 % (0.0-3.0); HEMATOCRIT 42.3 % (36.0-47.0); HEMOGLOBIN 13.9 g/dl (12.0-15.5); LYMPH # 1.2 10^3/uL (1.5-5.0); LYMPH % 25.2 % (24.0-44.0); MEAN CORPUSCULAR HEMOGLOBIN 31.5 pg (27.0-33.0); MEAN CORPUSCULAR HGB CONC 32.9 g/dl (32.0-36.5); MEAN CORPUSCULAR VOLUME 95.9 fl (80.0-96.0); MONO # 0.4 10^3/uL (0.0-0.8); MONO % 8.1 % (2.0-8.0); NEUTROPHILS # 2.8 10^3/uL (1.5-8.5); NEUTROPHILS % 60.3 % (36.0-66.0); PLATELET COUNT, AUTOMATED 194 10^3/uL (150-450); RED BLOOD COUNT 4.41 10^6/uL (4.00-5.40); WHITE BLOOD COUNT 4.7 10^3/uL (4.0-10.0)
== END ==
LOC: M LABDRAWC 11:26
PROVIDERS: ATTEND Internal Medicine
DX: D50.9 Iron deficiency anemia, unspecified (principal); E78.00 Pure hypercholesterolemia, unspecified; M85.9 Disorder of bone density and structure, unspecified; Z79.899 Other long term (current) drug therapy

== ENCOUNTER 2022-07-06 13:32 | Outpatient (CLI) | payer MEDICARE, OTHER ==
[~2022-07-06] VITALS: Ht 165.1 cm; Wt 67.0 kg
[2022-07-06 13:50] VITALS: BP 123/63
[2022-07-06] MEDS ORDERED: VEDOLIZUMAB 300 MG in NS 250 ML IV ONE (14:00)
[2022-07-06 15:10] VITALS: BP 139/80
== END 2022-07-06 15:10 | disposition home or self-care (01) ==
LOC: M INFU 13:32
PROVIDERS: ATTEND Internal Medicine Gastroenterology
DX: K51.50 Left sided colitis without complications (principal); Z88.8 Allergy status to other drugs, medicaments and biological substances
CPT/HCPCS: 96365; J3380

== ENCOUNTER → 2022-08-24 | Outpatient (CLI) | payer MEDICARE, OTHER ==
[~2022-08-24] MED LIST changes: +PROHANCE 279.3MG/ML 15ML VIAL As Ordered ONE
== END ==
LOC: M RAD 13:28
PROVIDERS: ATTEND Internal Medicine
DX: R42 Dizziness and giddiness (principal); D33.3 Benign neoplasm of cranial nerves
CPT/HCPCS: 70553; A9576

== ENCOUNTER → 2022-08-31 | Outpatient (REF) | payer MEDICARE, OTHER ==
[~2022-08-31] MED LIST changes: -PROHANCE 279.3MG/ML 15ML VIAL As Ordered ONE
== END ==
LOC: M LAB REF 17:06
PROVIDERS: ATTEND Internal Medicine Gastroenterology
DX: K51.50 Left sided colitis without complications (principal)

== ENCOUNTER 2022-10-26 15:20 | Outpatient (CLI) | payer MEDICARE, OTHER ==
[~2022-10-26] VITALS: Ht 170.2 cm; Wt 63.9 kg
[2022-10-26] MEDS ORDERED: VEDOLIZUMAB 300 MG in NS 250 ML IV ONE (15:30)
[2022-10-26 15:37] VITALS: BP 160/83; O2SAT 98
[2022-10-26 16:26] VITALS: BP 129/67; O2SAT 96
== END 2022-10-26 16:30 | disposition home or self-care (01) ==
LOC: M INFU 15:20
PROVIDERS: ATTEND Internal Medicine Gastroenterology
DX: K51.90 Ulcerative colitis, unspecified, without complications (principal); Z88.8 Allergy status to other drugs, medicaments and biological substances
CPT/HCPCS: 96365; J3380

== ENCOUNTER 2022-12-21 14:15 | Outpatient (CLI) | payer MEDICARE, OTHER ==
[~2022-12-21] VITALS: Ht 172.7 cm; Wt 65.5 kg
[~2022-12-21 14:15] MED LIST changes: +VEDOLIZUMAB 300 MG in NS 250 ML IV ONE
[2022-12-21 14:31] VITALS: BP 145/74; TEMP 97.4; O2SAT 97
[2022-12-21 15:23] VITALS: BP 152/72; O2SAT 97
== END 2022-12-21 15:25 ==
LOC: M INFU 14:15
PROVIDERS: ATTEND Internal Medicine Gastroenterology
DX: K51.50 Left sided colitis without complications (principal); Z88.8 Allergy status to other drugs, medicaments and biological substances
CPT/HCPCS: 96365; J3380

== ENCOUNTER 2023-06-24 08:52 | Outpatient (CLI) | payer MEDICARE, OTHER ==
[~2023-06-24] VITALS: Ht 172.7 cm; Wt 65.0 kg
[~2023-06-24 08:52] MED LIST changes: +ROSU5TAB40 PO; -ROSU5TAB5 PO; -VEDOLIZUMAB 300 MG in NS 250 ML IV ONE
[2023-06-24 09:05] VITALS: BP 145/72; O2SAT 99
[2023-06-24] MEDS: VEDOLIZUMAB 300 MG in NS 250 ML IV ONE (09:46)
[2023-06-24 10:20] VITALS: BP 145/71; O2SAT 98
== END 2023-06-24 10:30 ==
LOC: M INFU 08:52
PROVIDERS: ATTEND Internal Medicine Gastroenterology
DX: K50.919 Crohn's disease, unspecified, with unspecified complications (principal); Z88.8 Allergy status to other drugs, medicaments and biological substances
CPT/HCPCS: 96365; J3380

== ENCOUNTER → 2023-08-06 | Outpatient (REF) | payer MEDICARE, OTHER ==
[2023-08-06 13:00] LABS: BASO # 0.1 10^3/uL (0.0-0.2); BASO % 1.3 % (0.0-1.0); EOS # 0.2 10^3/uL (0.0-0.5); EOS % 5.6 % (0.0-3.0); HEMATOCRIT 40.4 % (36.0-47.0); HEMOGLOBIN 13.5 g/dl (12.0-15.5); LYMPH # 1.1 10^3/uL (1.5-5.0); LYMPH % 28.5 % (24.0-44.0); MEAN CORPUSCULAR HEMOGLOBIN 32.4 pg (27.0-33.0); MEAN CORPUSCULAR HGB CONC 33.4 g/dl (32.0-36.5); MEAN CORPUSCULAR VOLUME 96.9 fl (80.0-96.0); MONO # 0.3 10^3/uL (0.0-0.8); MONO % 8.1 % (2.0-8.0); NEUTROPHILS # 2.2 10^3/uL (1.5-8.5); NEUTROPHILS % 56.2 % (36.0-66.0); PLATELET COUNT, AUTOMATED 187 10^3/uL (150-450); RED BLOOD COUNT 4.17 10^6/uL (4.00-5.40)
[2023-08-06 13:29] LABS: IRON (FE) 76 UG/DL (50-170)
[2023-08-06 13:30] LABS: ALBUMIN 3.7 G/DL (3.2-5.2); ALKALINE PHOSPHATASE 65 U/L (46-116); ALT/SGPT 20 U/L (7.0-40); AST/SGOT 17 U/L (<34); BILIRUBIN,TOTAL 0.4 MG/DL (0.3-1.2); BLOOD UREA NITROGEN 22 MG/DL (9-23); CALCIUM LEVEL 9.2 MG/DL (8.3-10.6); CARBON DIOXIDE LEVEL 31 MMOL/L (20-31); CHLORIDE LEVEL 109 MMOL/L (98-107); CHOLESTEROL LEVEL 169 MG/DL (<200); CHOLESTEROL RISK RATIO 2.47 (<5); GLOMERULAR FILTRATION RATE > 60.0 (>39); GLUCOSE, FASTING 86 MG/DL (74-106); HDL CHOLESTEROL 68.3 MG/DL (>40); LDL CHOLESTEROL 83.3 MG/DL (<100); NON-HDL-C 100.7 MG/DL; PERCENT SATURATION 23.5 % (13.2-45.0); POTASSIUM SERUM 4.4 MMOL/L (3.5-5.1); SODIUM LEVEL 140 MMOL/L (136-145); TOTAL IRON BINDING CAPACITY 324 UG/DL (250-425); TRIGLYCERIDES LEVEL 87 MG/DL (<150)
[2023-08-06 13:32] LABS: FOLATE 11.8 NG/ML (>5.4); VITAMIN B12 LEVEL 1552 PG/ML (211-911)
== END ==
LOC: M LABDRAWC 12:46
PROVIDERS: ATTEND Internal Medicine
DX: E78.00 Pure hypercholesterolemia, unspecified (principal); D50.9 Iron deficiency anemia, unspecified

== ENCOUNTER 2023-08-19 10:30 | Outpatient (CLI) | payer MEDICARE, OTHER ==
[~2023-08-19] VITALS: Ht 172.7 cm; Wt 64.5 kg
[2023-08-19 10:30] VITALS: BP 161/78; TEMP 97.3; O2SAT 96
[2023-08-19 10:35] VITALS: BP 161/78; O2SAT 96
[2023-08-19] MEDS: VEDOLIZUMAB 300 MG in NS 250 ML IV ONE (11:01)
[2023-08-19 11:40] VITALS: BP 135/75; O2SAT 98
== END 2023-08-19 11:45 ==
LOC: M INFU 10:30
PROVIDERS: ATTEND Internal Medicine Gastroenterology
DX: K51.90 Ulcerative colitis, unspecified, without complications (principal); Z88.8 Allergy status to other drugs, medicaments and biological substances
CPT/HCPCS: 96413; J3380

== ENCOUNTER 2023-10-16 10:40 | Outpatient (CLI) | payer MEDICARE, OTHER ==
[~2023-10-16] VITALS: Ht 172.7 cm; Wt 64.5 kg
[2023-10-16 10:40] VITALS: BP 160/79; O2SAT 98
[2023-10-16] MEDS: VEDOLIZUMAB 300 MG in NS 250 ML IV ONE (10:58)
[2023-10-16 11:36] VITALS: BP 137/63; O2SAT 96
== END 2023-10-16 11:35 ==
LOC: M INFU 10:40
PROVIDERS: ATTEND Internal Medicine Gastroenterology
DX: K51.90 Ulcerative colitis, unspecified, without complications (principal); Z88.8 Allergy status to other drugs, medicaments and biological substances; Z12.31 Encounter for screening mammogram for malignant neoplasm of breast; Z13.820 Encounter for screening for osteoporosis; R92.313 Mammographic fatty tissue density, bilateral breasts
CPT/HCPCS: 77063; 77067; 96413; J3380

== ENCOUNTER → 2023-10-16 | Outpatient (CLI) | payer MEDICARE, OTHER ==
[~2023-10-16] MED LIST changes: +ACET650T61 PO; +CLOB5CR TOP; +CYAN-1 PO; +ESTR0.1C5 VG; +FERR325T19 PO; +VITA100054 PO
== END ==
LOC: M WHC 13:31
PROVIDERS: ATTEND Internal Medicine
DX: Z12.31 Encounter for screening mammogram for malignant neoplasm of breast (principal); Z13.820 Encounter for screening for osteoporosis; R92.313 Mammographic fatty tissue density, bilateral breasts

== ENCOUNTER 2023-11-26 07:09 | Day surgery (SDC) | payer MEDICARE, OTHER ==
[~2023-11-26] VITALS: Ht 172.7 cm; Wt 64.4 kg
[~2023-11-26 07:09] MED LIST changes: +NS 250 ML IV ONE; -ROSU5TAB40 PO; +ROSU5TAB49 PO
[2023-11-26] MEDS ORDERED: LIDOCAINE 2% 100MG/5ML SDV (FOR ANES.) As Ordered ONE (08:17)
[2023-11-26] MEDS ORDERED: propofoL 200 MG/20 ML VIAL As Ordered ONE (08:17)
[2023-11-26] MEDS ORDERED: GLYCOPYRROLATE INJ 0.2 MG/ML 2 ML VIAL As Ordered ONE (08:26)
[2023-11-26 09:00] VITALS: BP 113/72; O2SAT 95
== END 2023-11-26 09:05 | disposition home or self-care (01) ==
LOC: M OPP 07:09
PROVIDERS: ATTEND Internal Medicine Gastroenterology
DX: K51.50 Left sided colitis without complications (principal); K64.8 Other hemorrhoids; D64.9 Anemia, unspecified; Z87.19 Personal history of other diseases of the digestive system; E78.00 Pure hypercholesterolemia, unspecified; Z79.899 Other long term (current) drug therapy; Z79.82 Long term (current) use of aspirin; Z85.828 Personal history of other malignant neoplasm of skin; Z86.73 Personal history of transient ischemic attack (TIA), and cerebral infarction without residual deficits; Z90.710 Acquired absence of both cervix and uterus; Z87.891 Personal history of nicotine dependence
CPT/HCPCS: 45380; 88305; J1596

== ENCOUNTER 2023-12-11 10:39 | Outpatient (CLI) | payer MEDICARE, OTHER ==
[~2023-12-11] VITALS: Ht 172.7 cm; Wt 64.5 kg
[~2023-12-11 10:39] MED LIST changes: -NS 250 ML IV ONE; +ROSU5TAB40 PO; -ROSU5TAB49 PO
[2023-12-11 10:45] VITALS: BP 160/83; O2SAT 97
[2023-12-11] MEDS: VEDOLIZUMAB 300 MG in NS 250 ML IV ONE (11:45)
[2023-12-11 12:24] VITALS: BP 156/76; O2SAT 96
== END 2023-12-11 12:25 ==
LOC: M INFU 10:39
PROVIDERS: ATTEND Internal Medicine Gastroenterology
DX: K51.90 Ulcerative colitis, unspecified, without complications (principal); Z88.8 Allergy status to other drugs, medicaments and biological substances
CPT/HCPCS: 96413; J3380

== ENCOUNTER → 2024-06-26 | Outpatient (REF) | payer MEDICARE, OTHER ==
[~2024-06-26] MED LIST changes: +D31000CA5 PO; -ROSU5TAB40 PO; +ROSU5TAB49 PO; -VITA100054 PO
[2024-06-26 13:06] LABS: BASO # 0.1 10^3/uL (0.0-0.2); BASO % 1.2 % (0.0-1.0); EOS # 0.2 10^3/uL (0.0-0.5); EOS % 4.5 % (0.0-3.0); HEMATOCRIT 40.6 % (36.0-47.0); HEMOGLOBIN 13.5 g/dl (12.0-15.5); LYMPH % 24.4 % (24.0-44.0); MEAN CORPUSCULAR HEMOGLOBIN 32.2 pg (27.0-33.0); MEAN CORPUSCULAR HGB CONC 33.3 g/dl (32.0-36.5); MEAN CORPUSCULAR VOLUME 96.9 fl (80.0-96.0); MONO # 0.4 10^3/uL (0.0-0.8); MONO % 8.7 % (2.0-8.0); NEUTROPHILS # 2.5 10^3/uL (1.5-8.5); PLATELET COUNT, AUTOMATED 196 10^3/uL (150-450); RED BLOOD COUNT 4.19 10^6/uL (4.00-5.40)
[2024-06-26 13:16] LABS: C REACTIVE PROTEIN QUANTITATIV < 0.50 MG/DL (<1.0); IRON (FE) 58 UG/DL (50-170); PERCENT SATURATION 19.3 % (13.2-45.0); TOTAL IRON BINDING CAPACITY 300 UG/DL (250-425)
[2024-06-26 13:17] LABS: ALBUMIN 3.9 G/DL (3.2-5.2); ALKALINE PHOSPHATASE 61 U/L (35-104); ALT/SGPT 20 U/L (7.0-40); AST/SGOT 26 U/L (<34); BILIRUBIN,TOTAL 0.4 MG/DL (0.3-1.2); BLOOD UREA NITROGEN 19 MG/DL (9-23); CALCIUM LEVEL 9.1 MG/DL (8.3-10.6); CARBON DIOXIDE LEVEL 29 MMOL/L (20-31); CHLORIDE LEVEL 108 MMOL/L (98-107); CREATININE FOR GFR 0.68 MG/DL (0.55-1.30); ERYTHROCYTE SEDIMENTATION RATE 21 mm/hr (0-30); GLOMERULAR FILTRATION RATE 89.6 (>39); GLUCOSE, FASTING 90 MG/DL (74-106); POTASSIUM SERUM 4.3 MMOL/L (3.5-5.1); SODIUM LEVEL 145 MMOL/L (136-145); TOTAL PROTEIN 6.3 G/DL (5.7-8.2)
[2024-06-26 13:24] LABS: HEPATITIS B SURFACE ANTIGEN NEGATIVE (NEGATIVE)
[2024-06-30 13:08] LABS: QuantiFERON-TB Gold Plus NEGATIVE (NEGATIVE)
== END ==
LOC: M LABDRAWC 07:09
PROVIDERS: ATTEND Internal Medicine Gastroenterology
DX: K51.30 Ulcerative (chronic) rectosigmoiditis without complications (principal); M15.9 Polyosteoarthritis, unspecified; E78.00 Pure hypercholesterolemia, unspecified

== ENCOUNTER → 2024-06-26 | Outpatient (REF) | payer MEDICARE, OTHER ==
[2024-06-26 13:09] LABS: ALBUMIN 3.7 G/DL (3.2-5.2); ALKALINE PHOSPHATASE 62 U/L (35-104); ALT/SGPT 20 U/L (7.0-40); AST/SGOT 24 U/L (<34); BILIRUBIN,TOTAL 0.5 MG/DL (0.3-1.2); BLOOD UREA NITROGEN 18 MG/DL (9-23); CALCIUM LEVEL 9.2 MG/DL (8.3-10.6); CARBON DIOXIDE LEVEL 28 MMOL/L (20-31); CHLORIDE LEVEL 108 MMOL/L (98-107); CHOLESTEROL LEVEL 182 MG/DL (<200); CHOLESTEROL RISK RATIO 2.49 (<5); CREATININE FOR GFR 0.65 MG/DL (0.55-1.30); GLOMERULAR FILTRATION RATE > 90.0 (>39); GLUCOSE, FASTING 90 MG/DL (74-106); HDL CHOLESTEROL 72.9 MG/DL (>40); LDL CHOLESTEROL 92.9 MG/DL (<100); NON-HDL-C 109.1 MG/DL; POTASSIUM SERUM 4.1 MMOL/L (3.5-5.1); SODIUM LEVEL 143 MMOL/L (136-145); TOTAL PROTEIN 6.1 G/DL (5.7-8.2); TRIGLYCERIDES LEVEL 81 MG/DL (<150)
[2024-06-26 13:10] LABS: BASO # 0.1 10^3/uL (0.0-0.2); BASO % 1.2 % (0.0-1.0); EOS # 0.2 10^3/uL (0.0-0.5); EOS % 4.6 % (0.0-3.0); HEMOGLOBIN 13.3 g/dl (12.0-15.5); LYMPH % 24.3 % (24.0-44.0); MEAN CORPUSCULAR HEMOGLOBIN 32.2 pg (27.0-33.0); MEAN CORPUSCULAR HGB CONC 33.3 g/dl (32.0-36.5); MEAN CORPUSCULAR VOLUME 96.9 fl (80.0-96.0); MONO # 0.4 10^3/uL (0.0-0.8); MONO % 8.7 % (2.0-8.0); NEUTROPHILS # 2.5 10^3/uL (1.5-8.5); PLATELET COUNT, AUTOMATED 193 10^3/uL (150-450); RED BLOOD COUNT 4.13 10^6/uL (4.00-5.40); WHITE BLOOD COUNT 4.2 10^3/uL (4.0-10.0)
[2024-06-26 13:11] LABS: THYROID STIMULATING HORMONE 1.243 uIU/ML (0.55-4.78); TOTAL 25(OH) VITAMIN D 43.7 NG/ML (20.0-100.0); VITAMIN B12 LEVEL 843 PG/ML (211-911)
[2024-06-26 13:17] LABS: FOLATE 21.5 NG/ML (>5.4)
== END ==
LOC: M LABDRAWC 07:11
PROVIDERS: ATTEND Internal Medicine
DX: Z00.00 Encounter for general adult medical examination without abnormal findings (principal); D50.8 Other iron deficiency anemias; E78.2 Mixed hyperlipidemia; M15.9 Polyosteoarthritis, unspecified; E11.9 Type 2 diabetes mellitus without complications; D68.59 Other primary thrombophilia; E88.09 Other disorders of plasma-protein metabolism, not elsewhere classified; I26.92 Saddle embolus of pulmonary artery without acute cor pulmonale; Z12.5 Encounter for screening for malignant neoplasm of prostate; I10 Essential (primary) hypertension; K51.30 Ulcerative (chronic) rectosigmoiditis without complications; E78.00 Pure hypercholesterolemia, unspecified; Z79.899 Other long term (current) drug therapy; Z11.59 Encounter for screening for other viral diseases

== ENCOUNTER → 2024-08-19 | Outpatient (CLI) | payer MEDICARE, OTHER ==
[~2024-08-19] MED LIST changes: -PRAV20TA2 PO; +PRAV20TA78 PO
== END ==
LOC: M RAD 12:56
PROVIDERS: ATTEND Internal Medicine
DX: R05.9 Cough, unspecified (principal); Z87.891 Personal history of nicotine dependence; R91.8 Other nonspecific abnormal finding of lung field

== ENCOUNTER → 2024-09-18 | Outpatient (CLI) | payer MEDICARE, OTHER | LOC: M RAD 14:31 | PROVIDERS: ATTEND Internal Medicine | DX: R91.8 Other nonspecific abnormal finding of lung field (principal); K80.20 Calculus of gallbladder without cholecystitis without obstruction; I25.10 Atherosclerotic heart disease of native coronary artery without angina pectoris ==

== ENCOUNTER 2024-09-21 10:00 | Outpatient (CLI) | payer MEDICARE, OTHER ==
[~2024-09-21] VITALS: Ht 172.7 cm; Wt 65.0 kg
[2024-09-21 10:05] VITALS: BP 162/88; O2SAT 100
[2024-09-21] MEDS: VEDOLIZUMAB 300 MG in NS 250 ML IV ONE (10:39)
[2024-09-21 11:20] VITALS: BP 138/60; O2SAT 97
== END 2024-09-21 11:20 ==
LOC: M INFU 10:00
PROVIDERS: ATTEND Internal Medicine Gastroenterology
DX: K51.90 Ulcerative colitis, unspecified, without complications (principal); Z88.8 Allergy status to other drugs, medicaments and biological substances
CPT/HCPCS: 96413; J3380

== ENCOUNTER → 2024-10-20 | Outpatient (CLI) | payer MEDICARE, OTHER ==
[~2024-10-20] MED LIST changes: -ASPI-655 PO; +ASPI-737 PO
== END ==
LOC: M WHC 13:21
PROVIDERS: ATTEND Internal Medicine
DX: Z12.31 Encounter for screening mammogram for malignant neoplasm of breast (principal); R92.313 Mammographic fatty tissue density, bilateral breasts

== ENCOUNTER 2024-11-16 09:46 | Outpatient (CLI) | payer MEDICARE, OTHER ==
[2024-11-16 09:55] VITALS: BP 159/81; O2SAT 97
[2024-11-16] MEDS: VEDOLIZUMAB 300 MG in NS 250 ML IV ONE (11:02)
[2024-11-16 11:39] VITALS: BP 144/79; O2SAT 99
== END 2024-11-16 11:41 | disposition home or self-care (01) ==
LOC: M INFU 09:46
PROVIDERS: ATTEND Internal Medicine Gastroenterology
DX: K51.50 Left sided colitis without complications (principal); Z88.8 Allergy status to other drugs, medicaments and biological substances
CPT/HCPCS: 96413; J3380